=== PATIENT | male | born 1990 | race Caucasian/White ===

== ENCOUNTER 2020-11-04 08:44 | Outpatient (REF) | payer OTHER, SELFPAY ==
[2020-11-04 10:33] LABS: Hematocrit 41.8 % (42-52); Hemoglobin 13.9 g/dl (14.0-18.0); Mean Corpuscular HGB Conc 33.3 g/dl (31.0-36.0); Mean Corpuscular Hemoglobin 29.6 pg (27.0-33.0); Mean Corpuscular Volume 88.9 fL (80-98); Mean Platelet Volume 11.5 fL (9.4-12.4); Platelet Count 234 X10*3/uL (160-400); Red Cell Distribution Width 12.3 % (11.0-16.0); White Blood Count 5.5 X10*3/uL (4.8-10.8)
[2020-11-04 10:57] LABS: Alanine Aminotransferase 21 U/L (0-40); Albumin Level 4.5 g/dL (3.5-5.0); Alkaline Phosphatase 78 U/L (39-117); Anion Gap 9 (12-20); Aspartate Amino Transferase 16 U/L (5-37); Bilirubin Direct 0.4 mg/dL (0.0-0.5); Bilirubin Total 1.5 mg/dL (0.0-1.0); Blood Urea Nitrogen 14 mg/dL (9-16); Carbon Dioxide 31 mmol/L (22-29); Chloride 105 mmol/L (96-108); Cholesterol 150 mg/dL; Estimated Glomerular Filt Rate > 60; Glucose Fasting 111 mg/dL (60-99); HDL Cholesterol 35 mg/dL; LDL Cholesterol Calculated 88 mg/dl; Potassium 4.2 mmol/L (3.3-5.1); Sodium 141 mmol/L (135-145); Total Protein 7.1 g/dL (6.5-8.0); Triglycerides 135 mg/dL
[2020-11-04 11:17] LABS: TSH reflex Free T4 1.56 uIU/mL (0.32-4.0)
== END 2020-11-04 08:45 | disposition home or self-care (01) ==
LOC: HO.WFDLDS 08:44
PROVIDERS: PCP Hospitalist; Visit Provider Hospitalist
DX: Z00.00 Encounter for general adult medical examination without abnormal findings (principal)
CPT/HCPCS: 36415; 80048; 80061; 80076; 84443; 85027

== ENCOUNTER 2020-12-09 10:22 | Outpatient (REF) | payer OTHER, SELFPAY ==
[2020-12-09 14:40] LABS: Anion Gap 17 (12-20); Blood Urea Nitrogen 19 mg/dL (9-16); Calcium 9.6 mg/dL (8.4-10.2); Carbon Dioxide 27 mmol/L (22-29); Chloride 103 mmol/L (96-108); Estimated Glomerular Filt Rate > 60; Glucose Random 102 mg/dL (60-115); Potassium 4.5 mmol/L (3.3-5.1); Sodium 142 mmol/L (135-145)
== END 2020-12-09 10:23 | disposition home or self-care (01) ==
LOC: HO.WFDLDS 10:22
PROVIDERS: Visit Provider Hospitalist
DX: R17 Unspecified jaundice (principal)
CPT/HCPCS: 36415; 80048

== ENCOUNTER 2021-07-01 10:41 | Outpatient (REF) | payer OTHER, SELFPAY ==
[2021-07-01 14:08] LABS: Hematocrit 42.3 % (42-52); Mean Corpuscular HGB Conc 33.1 g/dl (31.0-36.0); Mean Corpuscular Hemoglobin 29.2 pg (27.0-33.0); Mean Corpuscular Volume 88.3 fL (80-98); Mean Platelet Volume 11.3 fL (9.4-12.4); Platelet Count 209 X10*3/uL (160-400); Red Blood Count 4.79 X10*6/uL (4.60-5.80); Red Cell Distribution Width 11.9 % (11.0-16.0)
[2021-07-01 14:34] LABS: Alanine Aminotransferase 14 U/L (0-40); Albumin Level 4.7 g/dL (3.5-5.0); Alkaline Phosphatase 77 U/L (39-117); Anion Gap 9 (12-20); Aspartate Amino Transferase 14 U/L (5-37); Bilirubin Total 1.6 mg/dL (0.0-1.0); Blood Urea Nitrogen 9 mg/dL (9-16); Calcium 9.4 mg/dL (8.4-10.2); Carbon Dioxide 31 mmol/L (22-29); Chloride 105 mmol/L (96-108); Cholesterol 166 mg/dL; Estimated Glomerular Filt Rate > 60; Glucose Fasting 101 mg/dL (60-99); HDL Cholesterol 42 mg/dL; LDL Cholesterol Calculated 105 mg/dl; Sodium 141 mmol/L (135-145); Total Protein 7.4 g/dL (6.5-8.0); Triglycerides 97 mg/dL
[2021-07-01 14:54] LABS: TSH reflex Free T4 1.44 uIU/mL (0.32-4.0)
== END 2021-07-01 10:42 | disposition home or self-care (01) ==
LOC: HO.WFDLDS 10:41
PROVIDERS: Visit Provider Hospitalist
DX: Z00.00 Encounter for general adult medical examination without abnormal findings (principal)
CPT/HCPCS: 36415; 80053; 80061; 84443; 85027

== ENCOUNTER 2021-09-19 10:53 | Outpatient (REF) | payer OTHER, SELFPAY ==
[2021-09-19 11:47] LABS: Binax Internal Control QC Valid; Binax Lot number: 9864; Binax Now Covid-19 Ag Positive (Negative)
== END 2021-09-19 10:54 | disposition home or self-care (01) ==
LOC: HO.LAB 10:53
PROVIDERS: Visit Provider Internal Medicine
DX: Z20.822 Contact with and (suspected) exposure to COVID-19 (principal)
CPT/HCPCS: 36415; C9803

== ENCOUNTER 2021-09-19 11:07 | Outpatient (REF) | payer SELFPAY ==
[2021-09-19 11:48] LABS: Binax Internal Control QC Valid; Binax Lot number: 9864; Binax Now Covid-19 Ag Positive (Negative)
== END 2021-09-19 11:08 | disposition home or self-care (01) ==
LOC: HO.LAB 11:07
PROVIDERS: Visit Provider Internal Medicine
DX: Z20.822 Contact with and (suspected) exposure to COVID-19 (principal)
CPT/HCPCS: 36415; C9803

== ENCOUNTER 2021-09-25 12:36 | Outpatient (REF) | payer OTHER, SELFPAY ==
[2021-09-25 15:51] LABS: Binax Internal Control QC Valid; Binax Now Covid-19 Ag Negative (Negative)
== END 2021-09-25 12:37 | disposition home or self-care (01) ==
LOC: HO.LAB 12:36
PROVIDERS: Visit Provider Internal Medicine
DX: Z20.822 Contact with and (suspected) exposure to COVID-19 (principal)
CPT/HCPCS: 36415; C9803

== ENCOUNTER 2021-09-25 12:37 | Outpatient (REF) | payer SELFPAY ==
[2021-09-25 15:49] LABS: Binax Internal Control QC Valid; Binax Now Covid-19 Ag Negative (Negative)
== END 2021-09-25 12:38 | disposition home or self-care (01) ==
LOC: HO.LAB 12:37
PROVIDERS: Visit Provider Internal Medicine
DX: Z20.822 Contact with and (suspected) exposure to COVID-19 (principal)
CPT/HCPCS: 36415; C9803

== ENCOUNTER 2021-10-11 07:44 | Emergency (ER) | payer BC, SELFPAY ==
--- NOTE | ~2021-10-11 | CT_ITS ---
EXAMINATION: CT ABDOMEN AND PELVIS WITHOUT CONTRAST CLINICAL INFORMATION: Right flank pain COMPARISON: None TECHNIQUE: Multidetector volumetric imaging was performed from the superior aspect of the liver through the pubic symphysis. Sagittal and coronal reformatted images were obtained on the technologist's workstation. This CT examination was performed using dose optimization techniques as appropriate, variously including the following: *Automated exposure control *Adjustment of mA and/or kV according to patient size (this includes techniques or standardized protocols for targeted exams where dose is matched to indication/reason for exam; i.e. extremities or head) *Use of iterative reconstruction technique DLP: 676 mGy-cm FINDINGS: LUNG BASES: The visualized lung bases are unremarkable. LIVER, GALLBLADDER, AND BILIARY TREE: Diffuse fatty infiltration of liver with sparing along the gallbladder fossa. The gallbladder is unremarkable with no evidence of radiopaque gallstones, gallbladder wall thickening, or obvious pericholecystic inflammatory changes. PANCREAS: Unremarkable. SPLEEN: Unremarkable. ADRENAL GLANDS: Unremarkable. KIDNEYS AND URETERS: The kidneys are normal in size, shape, and attenuation. No hydronephrosis, hydroureter, or calculi seen. No perinephric stranding. BLADDER: Unremarkable. GASTROINTESTINAL TRACT: The small and large bowel are unremarkable. The appendix is unremarkable. ABDOMINAL WALL: No significant hernia is appreciated. LYMPH NODES: Normal. VASCULAR: Unremarkable. PELVIC VISCERA: Unremarkable. OSSEOUS STRUCTURES: Unremarkable. CT/CT abdomen pelvis wo IV con IMPRESSION: No focal inflammatory process or obstruction. No renal or ureteral calculi. Normal appendix. Mild diffuse fatty infiltration of the liver. Fleischner guidelines were followed.
[2021-10-11 08:34] VITALS: BP 141/88; PULSE 74; RESP 18; O2SAT 99; BMI 32.1
[2021-10-11 08:47] LABS: Appearance Urine CLOUDY; Color Urine YELLOW; Glucose Urine UA NEG (NEG); Leukocyte Esterase Urine NEG (NEG); Nitrite Urine NEG (NEG); Specific Gravity - Urine >= 1.030 (1.005-1.025); UACC Culture Trigger NO; Urine Blood 3+ (NEG); Urine Ketones NEG (NEG); Urine Protein TRACE MG/DL (NEG-TRACE)
[2021-10-11 09:00] LABS: Mucus Urine 2+ /LPF; Squamous Epithelial Cell Urine TRACE /LPF; WBC Urine 0 /HPF (0-4)
--- NOTE | 2021-10-11 09:27 | ED_ITS ---
HPI - Back Pain/Injury General Chief Complaint: Back Pain/Injury Stated Complaint: Lower back pain Time Seen by Provider: 10/11/21 08:39 Source: patient Mode of arrival: ambulatory History of Present Illness HPI Narrative: 30-year-old male with a past medical history of hypertension presenting to the ED complaining of right flank pain radiating to right testicle x 2-3 days. Reports pain is intermittent, also admits to dark colored urine. Denies known injury/trauma or fall, Testicular pain/swelling, fever, chills, nausea, vomiting, dysuria/hematuria, abdominal pain MD elicited complaint: back pain Onset (ago): day(s) Related Data Previous Rx's Medication Instructions Recorded lisinopril 10 mg tablet 10 mg PO DAILY #90 tab 09/10/21 doxycycline hyclate 100 mg tablet 100 mg PO BID 7 Days #14 tab 10/11/21 Allergies Allergy/AdvReac Type Severity Reaction Status Date / Time No Known Allergies Allergy Unverified 06/06/20 15:54 [No Known Allergies*] Review of Systems Review of Systems: Constitutional: No Fever, No Chills, No Fatigue, No Malaise ENT/Mouth: No Hearing loss, No Ear Pain, No Nasal Congestion, No sore throat, No Rhinorrhea, No Swallowing Difficulty Eyes: No Eye Pain, No Swelling, No Redness, No Discharge, No Vision Changes Cardiovascular: No Chest Pain, No SOB, No Palpitations Respiratory: No Cough, No Sputum, No Dyspnea Gastrointestinal: No Nausea, No Vomiting, No Diarrhea, No Constipation, No Abdominal pain Genitourinary: No testicular pain, No scrotal swelling, No Dysuria, No Urinary Frequency, No Hematuria, No Urinary Incontinence, No Urgency, + Flank Pain, No Urinary Flow Changes Musculoskeletal: No joint pain, No Myalgias, No Joint Swelling Skin: No Skin Lesions, No rash Neuro: No Weakness, No Numbness, No Headache Yes all other systems are reviewed and are negative PMFSH Past Medical History Attestation statement: The following information was validated with the patient. Medical History Hypertension Social History Social History Alcohol intake: never Patient Tobacco Use Status: Never used Tobacco Use of substances other than those prescribed or required for medical reasons: No Advance Directives: No Advance Directives Information Provided: No Physical Exam Vital Signs: Vital Signs: Last Vital Signs Temp 97.9 F 10/11/21 09:48 Pulse 92 10/11/21 09:48 Resp 18 10/11/21 09:48 BP 142/92 H 10/11/21 09:48 Pulse Ox 100 10/11/21 09:48 BMI result Body Mass Index 32.1 Const: General: cooperative, healthy appearing, no acute distress and well developed Orientation/consciousness: patient oriented x3 Limitations: no limitations HENMT: Head: Yes normal to inspection and Yes atraumatic Ears: hearing grossly normal bilaterally General nose exam: Normal external nose present Face and sinus: Yes normal facial exam Eyes: General: appearance normal, both eyes and all related structures EOM: EOMs intact bilaterally Neck: Neck: Yes normal visual inspection and Yes no meningeal signs Resp: Effort & Inspection: normal respiratory effort and no respiratory distress Cardio: Rate: regular rate Heart sounds: S1 normal heart sound present and S2 normal heart sound present GI: Inspection: Yes normal to inspection Palpation (GI): Soft to palpation, nontender, no guarding and not rigid : General: Yes CVA tenderness on the right Penis: normal penis, uncircumcised and no swelling Scrotum: scrotum normal Testes: Testes normal, testicular lie normal, not enlarged, no testicular swelling and no testicular tenderness Back/Spine/Pelvis: Back: CVA tenderness Skin: Rashes: no rashes Wounds: no wounds Neuro: General: patient oriented x3 and no meningeal signs Gait exam (Neuro): Normal gait present Extrem: General: Yes normal to inspection Course Course Course Narrative: -0939--CT abdomen pelvis wo con IMPRESSION: No focal inflammatory process or obstruction. No renal or ureteral calculi. Normal appendix. Mild diffuse fatty infiltration of the liver.? Fleischner guidelines were followed. -UA with multiple RBCs, not infected, likely patient passed stone -patient denies testicular swelling, lesions, discharge, or concern for STI. Will obtain CT NG. exam WNL >> No need for further imaging at this time. Patient agreeable to empiric treatment of GC/chlamydia with IM Rocephin and Doxycycline -no leukocytosis, ALT elevated, labs otherwise unremarkable. Results discussed with patient including worrisome signs and symptoms and strict return precautions and need to close follow-up with PCP which he reports he has follow- up next week. He verbalized understanding & feel safe for discharge home at this time MDM - Back Pain/Injury MDM Narrative Medical decision making narrative: 30-year-old male with a past medical history of hypertension presenting to the ED complaining of right flank pain radiating to right testicle times 2-3 days. On exam vital signs stable, NAD/nontoxic, right CVA tenderness noted on exam. Abdomen soft/nontender. Concern for renal stone/colic vs UTI/pyelo. Lower concern for appendicitis/diverticulitis, pancreatitis or cholecystitis/lithiasis. Low concern for testicular torsion/e pididymitis/orchitis Plan: Labs, UA, CT AP, IVF, symptomatic treatment, re-evaluate Differential Diagnosis Differential diagnosis: Likely pyelonephritis Medical Records Attestation: I reviewed the patient's medical records. Lab Data Attestation: I reviewed the patient's lab results. Result diagrams: 10/11/21 09:47 10/11/21 09:47 Labs: Lab Results 10/11/21 10/11/21 10/11/21 Range/Units 08:40 09:47 09:47 WBC 6.4 (4.8-10.8) X10*3/uL RBC 4.78 (4.60-5.80) X10*6/uL Hgb 14.2 (14.0-18.0) g/dl Hct 42.5 (42.0-52.0) % MCV 88.9 (80.0-98.0) fL MCH 29.7 (27.0-33.0) pg MCHC 33.4 (31.0-36.0) g/dl RDW 12.2 (11.0-16.0) % Plt Count 179 (160-400) X10*3/uL MPV 11.2 (9.4-12.4) fL Immature Gran % (Auto) 0.2 (0.0-0.4) % Neut % (Auto) 36.4 L (45-73) % Lymph % (Auto) 50.5 H (20-40) % [place] % (Auto) 5.9 (2-11) % Eos % (Auto) 6.2 H (0-4) % Baso % (Auto) 0.8 (0-2) % Lymph # (Auto) 3.3 (1.2-4.9) X10*3/uL [place] # (Auto) 0.4 (0.1-1.2) X10*3/uL Eos # (Auto) 0.4 (0.0-0.4) X10*3/uL Baso # (Auto) 0.1 (0.0-0.2) X10*3/uL Abs Immat Gran (auto) 0.01 (0.00-0.03) X10*3/uL Absolute Neuts (auto) 2.3 (2.0-8.3) x10*3/uL Absolute Nucleated RBC 0.000 (0.0-0.012) X10*3/uL Nucleated RBC % (auto) 0.0 (0.0-0.2) /100WBC Sodium 143 (135-145) mmol/L Potassium 3.7 (3.3-5.1) mmol/L Chloride 106 (96-108) mmol/L Carbon Dioxide 26 (22-29) mmol/L Anion Gap 15 (12-20) BUN 8 L (9-16) mg/dL Creatinine 0.79 (0.5-1.4) mg/dL Estim Creat Clear Calc 165.0 Estimated GFR > 60 Random Glucose 114 (60-115) mg/dL Calcium 9.4 (8.4-10.2) mg/dL Total Bilirubin 1.1 H (0.0-1.0) mg/dL Direct Bilirubin 0.4 (0.0-0.5) mg/dL AST 30 (5-37) U/L ALT 58 H (0-40) U/L Alkaline Phosphatase 92 (39-117) U/L Total Protein 7.3 (6.5-8.0) g/dL Albumin 4.4 (3.5-5.0) g/dL Lipase 18 (8-78) U/L Urine Color YELLOW Urine Appearance CLOUDY Urine pH 6.0 (5.0-8.0) Ur Specific [place] >= 1.030 H (1.005-1.025) Urine Protein TRACE (NEG-TRACE) MG/DL Urine Glucose (UA) NEG (NEG) MG/DL Urine Ketones NEG (NEG) MG/DL Urine Blood 3+ H (NEG) Urine Nitrite NEG (NEG) Ur Leukocyte Esterase NEG (NEG) Urine RBC 76-150 H (0) /HPF Urine WBC 0 (0-4) /HPF Ur Squamous Epith Cells TRACE /LPF Urine Bacteria NONE /LPF Urine Mucus 2+ /LPF Discharge Plan Discharge Clinical Impression: Acute flank pain, Hematuria, microscopic Patient Disposition: Home, Self-Care Instructions: Flank Pain (ED) Additional Instructions: A CT scan was unremarkable. Your urine had a lot of blood in it, it is suspected that your passed a stone Your blood work was otherwise reassuring Your tested for gonorrhea and Chlamydia, the results are pending at this time, you were treated empirically in the emergency department. You will be called with positive result only in 48-72 hours. Refrain from any sexual contact until you know the results of her cultures. If symptoms persist or worsen, pain becomes constant/unbearable, you have persistent nausea/vomiting or fever please return to the emergency department Prescriptions: New doxycycline hyclate 100 mg tablet 100 mg PO BID 7 Days Qty: 14 RF: 0 No Action lisinopril 10 mg tablet 10 mg PO DAILY Qty: 90 RF: 1 Referrals: Beverly Ambriz NP [Primary Care Provider] - 3 days
[2021-10-11 09:48] VITALS: BP 142/92; PULSE 92; RESP 18; TEMP 36.6; O2SAT 100
[2021-10-11] MEDS: Ketorolac Tromethamine 30 MG/ML VIAL 15 MG IVPUSH (09:53)
[2021-10-11 09:54] LABS: MANUAL DIFF FLAG NO
[2021-10-11] MEDS: 0.9 % Sodium Chloride 1,000 ML 999 ML IV (09:54)
[2021-10-11 10:13] LABS: Basophils Absolute Auto 0.1 X10*3/uL (0.0-0.2); Basophils Percent Auto 0.8 % (0-2); Eosinophils Absolute Auto 0.4 X10*3/uL (0.0-0.4); Eosinophils Percent Auto 6.2 % (0-4); Hematocrit 42.5 % (42.0-52.0); Hemoglobin 14.2 g/dl (14.0-18.0); Imm Gran Abs Auto 0.01 X10*3/uL (0.00-0.03); Imm Gran Pct Auto 0.2 % (0.0-0.4); Lymphocytes Absolute Auto 3.3 X10*3/uL (1.2-4.9); Lymphocytes Percent Auto 50.5 % (20-40); Mean Corpuscular HGB Conc 33.4 g/dl (31.0-36.0); Mean Corpuscular Hemoglobin 29.7 pg (27.0-33.0); Mean Corpuscular Volume 88.9 fL (80.0-98.0); Mean Platelet Volume 11.2 fL (9.4-12.4); Monocytes Absolute Auto 0.4 X10*3/uL (0.1-1.2); Monocytes Percent Auto 5.9 % (2-11); Neutrophils Absolute Auto 2.3 x10*3/uL (2.0-8.3); Neutrophils Percent Auto 36.4 % (45-73); Platelet Count 179 X10*3/uL (160-400); Red Blood Count 4.78 X10*6/uL (4.60-5.80); Red Cell Distribution Width 12.2 % (11.0-16.0); White Blood Count 6.4 X10*3/uL (4.8-10.8)
[2021-10-11 10:23] LABS: Alanine Aminotransferase 58 U/L (0-40); Albumin Level 4.4 g/dL (3.5-5.0); Alkaline Phosphatase 92 U/L (39-117); Anion Gap 15 (12-20); Aspartate Amino Transferase 30 U/L (5-37); Bilirubin Direct 0.4 mg/dL (0.0-0.5); Bilirubin Total 1.1 mg/dL (0.0-1.0); Blood Urea Nitrogen 8 mg/dL (9-16); Calcium 9.4 mg/dL (8.4-10.2); Carbon Dioxide 26 mmol/L (22-29); Chloride 106 mmol/L (96-108); Estimated Glomerular Filt Rate > 60; Glucose Random 114 mg/dL (60-115); Lipase 18 U/L (8-78); Potassium 3.7 mmol/L (3.3-5.1); Sodium 143 mmol/L (135-145); Total Protein 7.3 g/dL (6.5-8.0)
[2021-10-11 12:17] LABS: CT PCR NOT DETECTED (Not Detect.); NG PCR NOT DETECTED (Not Detect.)
[2021-10-11 12:32] VITALS: BP 119/69; PULSE 73; RESP 18; O2SAT 98
== END 2021-10-11 12:50 | disposition home or self-care (01) ==
PROVIDERS: Physician Assistant; Emergency Provider Internal Medicine; PCP Hospitalist
DX: R10.9 Unspecified abdominal pain (principal); R31.29 Other microscopic hematuria; I10 Essential (primary) hypertension; Z79.899 Other long term (current) drug therapy
CPT/HCPCS: 36415; 74176; 80048; 80076; 81001; 83690; 85025; 87491; 87591; 96361; 96372; 96374; 99284; J1885

== ENCOUNTER 2021-10-14 08:10 | Outpatient (REF) | payer BC, SELFPAY ==
[2021-10-14 10:04] LABS: Cholesterol 166 mg/dL; HDL Cholesterol 31 mg/dL; LDL Cholesterol Calculated 111 mg/dl; Triglycerides 122 mg/dL
[2021-10-14 10:25] LABS: TSH reflex Free T4 0.72 uIU/mL (0.32-4.0)
== END 2021-10-14 08:11 | disposition home or self-care (01) ==
LOC: HO.LAB 08:10
PROVIDERS: PCP Hospitalist; Visit Provider Hospitalist
DX: Z00.00 Encounter for general adult medical examination without abnormal findings (principal)
CPT/HCPCS: 36415; 80061; 84443

== ENCOUNTER 2021-12-09 13:06 | Emergency (ER) | payer OTHER, SELFPAY ==
[2021-12-09 13:31] VITALS: BP 138/69; PULSE 62; RESP 19; TEMP 36.6; O2SAT 98; BMI 27.8
[2021-12-09 14:15] LABS: COVID-19 Test Negative (Negative); IDNOW Serial# 08D9AD1C
[2021-12-09 14:16] LABS: Influenza A Negative (Negative); Influenza B2 Negative (Negative)
--- NOTE | 2021-12-09 14:45 | ED.GENADULT ---
HPI - General Adult General Chief complaint: General Medical Stated complaint: Headache/fever Time Seen by Provider: 12/09/21 14:45 Source: patient Mode of arrival: ambulatory History of Present Illness HPI narrative: 50-year-old male with no significant past medical history presenting to the ED complaining of subjective fever, sinus pressure, mild headache, sore throat, and congestion x 3-5 days. Denies ear pain, difficulty/inability to swallow, cough, SOB, CP, sick contacts Onset (ago): day(s) Related Data Home Medications Medication Instructions Recorded Confirmed multivitamin with iron-mineral 1 tab PO DAILY 12/09/20 Previous Rx's Medication Instructions Recorded flu vac qv 2020(18yr up)rc(PF) 0.5 ml IM ONCE 1 Days #0.5 ml 07/01/21 fluticasone propionate 50 2 spray INTRANASAL DAILY #16 g 12/09/21 mcg/actuation nasal spray,suspension (Flonase Allergy Relief) Allergies Allergy/AdvReac Type Severity Reaction Status Date / Time banana Allergy Mild swell up Verified 07/01/21 10:01 Review of Systems Review of Systems: Constitutional: +Subj Fever, No Chills ENT/Mouth: No Ear Pain, + Nasal Congestion, + Sinus Pain, No Hoarseness, + sore throat, + Rhinorrhea, No Swallowing Difficulty Cardiovascular: No Chest Pain, No SOB Respiratory: No Cough, No Sputum, No Wheezing Gastrointestinal: No Nausea, No Vomiting, No Diarrhea, No Constipation, No Abdominal pain Genitourinary: No Dysuria, No Urinary Frequency, No Hematuria, No Urgency, No Flank Pain Musculoskeletal: No joint pain, No Myalgias, No Joint Swelling Skin: No Skin Lesions, No rash Neuro: No Weakness, No Numbness, No Paresthesias, +Headache Yes all other systems are reviewed and are negative [facility] Past Medical History Attestation statement: The following information was validated with the patient. Family History Family History Mother High blood pressure Glaucoma Heart disease Cancer Lactose intolerance Father High blood pressure Heart disease Cancer Sleep apnea Brother High blood pressure Social History Social History Housing: House Patient Tobacco Use Status: Former Tobacco user e-Cigarette/Vaping Use: Never Used Advance Directives: No Advance Directives Information Provided: No service: No Current occupational status: employed Current occupation: student financial services counselor Physical Exam ED Vital Signs: Vital Signs - 24 hr 12/09/21 13:31 Temperature 98 F Pulse Rate 62 Respiratory Rate 19 Blood Pressure 138/69 Pulse Oximetry 98 BMI result Body Mass Index 27.8 Const General: cooperative, healthy appearing, no acute distress, alert and awake Orientation/consciousness: patient oriented x3 Limitations: no limitations HENMT Head: Yes normal to inspection Ears: hearing grossly normal bilaterally, external ears normal, TM's normal bilaterally and mastoids normal General nose exam: Normal external nose present and Nasal discharge present clear Face and sinus: Yes normal facial exam and Yes sinuses nontender Mouth: Normal oral and palatal mucosa present Throat: Yes posterior oropharynx normal, Yes tonsils normal, Yes uvula midline, No peritonsillar mass, No uvula laterally displaced and No uvular edema Eyes General: appearance normal, both eyes and all related structures EOM: EOMs intact bilaterally Neck Neck: Yes normal visual inspection, Yes no lymphadenopathy, Yes no meningeal signs and Yes supple Resp Effort & Inspection: normal respiratory effort and no respiratory distress Auscultation: clear to auscultation bilaterally, no rales, no rhonchi and no wheezes Cardio Rate: regular rate Heart sounds: S1 normal heart sound present and S2 normal heart sound present GI Inspection: Yes normal to inspection Palpation (GI): Soft to palpation, nontender, no guarding and not rigid Skin Rashes: no rashes Wounds: no wounds Neuro General: patient oriented x3 and no meningeal signs Gait exam (Neuro): Normal gait present Extrem General: Yes normal to inspection Course Course Course Narrative: -COVID-19 negative, influenza negative Medical Decision Making [facility] Narrative Medical decision making narrative: 50-year-old male with no significant past medical history presenting to the ED complaining of subjective fever, sinus pressure, mild headache, sore throat, and congestion x 3-5 days. On exam vital signs stable, NAD/nontoxic appearing, lungs CTA, TM's/oropharynx WNL. Concern for viral syndrome. Exam not consistent with strep pharyngitis or otitis Plan: COVID-19 testing, influenza testing Medical Records Medical records reviewed: Yes I reviewed the patient's medical records. Lab Data Labs: Lab Results 12/09/21 12/09/21 Range/Units 13:42 13:42 COVID-19 (REGINO) Negative (Negative) COVID-19 Clin Com See Note Influenza Type A (LILI) Negative (Negative) Influenza Type B (LILI) Negative (Negative) Influenza A & B Note See Note Discharge Plan Discharge Clinical Impression: Acute viral syndrome Patient Disposition: Home, Self-Care Instructions: Viral Syndrome (ED) Additional Instructions: You tested negative for COVID-19 in the flu Stay hydrated at home Rest Take Tylenol and Motrin as needed Flonase as a nasal decongestion Please follow-up with her doctor. If symptoms persist or worsen, he develops shortness of breath, fever unresolved with medications or chest pain please return to the ED Prescriptions: New fluticasone propionate [Flonase Allergy Relief] 50 mcg/actuation spray,suspension 2 spray intranasal DAILY Qty: 16 0RF Rx Instructions: administer into each nostril No Action multivitamin with iron-mineral Tablet 1 tab PO DAILY 0RF flu vac qv 2020(18yr up)rc(PF) 180 mcg (45 mcg x 4)/0.5 mL syringe 0.5 ml IM ONCE 1 Days Qty: 0.5 0RF Referrals: Beverly Ambriz, [employer] [Primary Care Provider] - 2 days
== END 2021-12-09 15:01 | disposition home or self-care (01) ==
PROVIDERS: Emergency Provider Emergency Medicine Emergency Medical Services; PCP Hospitalist
DX: B34.9 Viral infection, unspecified (principal); Z20.822 Contact with and (suspected) exposure to COVID-19; R51.9 Headache, unspecified
CPT/HCPCS: 87502; 87635; 99283

== ENCOUNTER 2022-02-21 20:00 | Emergency (ER) | payer OTHER, SELFPAY ==
--- NOTE | ~2022-02-21 | CT_ITS ---
EXAMINATION: CT SOFT TISSUE NECK WITHOUT CONTRAST CLINICAL INFORMATION: Left mandibular swelling. Rule out abscess. COMPARISON: None TECHNIQUE: Helical imaging was performed in the axial plane with generation of coronal and sagittal reformatted images. This CT examination was performed using dose optimization techniques as appropriate, variously including the following: *Automated exposure control *Adjustment of mA and/or kV according to patient size (this includes techniques or standardized protocols for targeted exams where dose is matched to indication/reason for exam; i.e. extremities or head) *Use of iterative reconstruction technique DLP: 975 mGy-cm FINDINGS: Extensive periapical lucency surrounding the roots of the right mandibular second premolar and first molar teeth with dehiscence of the buccal surface of the alveolar ridge and overlying soft tissue thickening. No gross low-density soft tissue/subperiosteal abscess. Extensive carious disease of the second premolar. On the left side, there are smaller periapical lucency about the roots of the left second premolar and first molar teeth compatible with periapical disease with minimal focal dehiscence of the buccal surface of the alveolus the more extensive soft tissue thickening and inflammatory fat stranding about the mandible minimal subcutaneous fat stranding. Again, no appreciable loculated fluid collection. No tracking soft tissue gas. No appreciable soft tissue swelling/inflammatory change at the floor the mouth. Major salivary glands unremarkable. Nodular heterogeneous appearance of the thyroid gland. No cervical lymphadenopathy. No mucosal space mass. Mild thickening of the posterior nasopharyngeal soft tissues likely lymphoid hyperplasia. Visualized intracranial structures are grossly unremarkable-limited assessment. Globes and retro-orbital structures are intact. 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 Parapharyngeal fat is maintained bilaterally. Visualized lung apices are clear. Diffuse retention cyst in the left maxillary antrum. Paranasal sinuses and mastoid air cells are otherwise normally aerated. Mild/early degenerative change suspected at the right TMJ with minimal sclerosis and subchondral cystic change about the mandibular condyle. No fracture or suspicious osseous lesion. Mild reversal of normal cervical lordosis noted. No listhesis. CT/CT soft tissue neck wo con IMPRESSION: 1. Periapical lucencies compatible with dental abscess/periapical disease involving the mandible surrounding the roots of the right and left second premolars and first molar teeth with dehiscence of the buccal surface of the mandible on both sides right greater than left and overlying soft tissue thickening and/or inflammatory change, left worse than right. No appreciable loculated fluid collection/soft tissue abscess appreciated. 2. Heterogeneously slightly nodular appearance of the thyroid gland. Correlate with thyroid function tests and suggest nonemergent thyroid ultrasound.
[2022-02-21 20:14] VITALS: BP 150/85; PULSE 60; RESP 20; TEMP 36.1; O2SAT 99; BMI 27.8
--- NOTE | 2022-02-21 21:07 | ED_ITS ---
HPI - Dental/Oral General Chief complaint: Dental/Oral Stated complaint: swollen/inflamed cheek, possible dental infection Time Seen by Provider: 02/21/22 20:59 Source: patient Mode of arrival: ambulatory Limitations: no limitations History of Present Illness HPI Narrative: 31-year-old male presents to the emergency department complaints of swelling to the left gum/cheek, tooth pain x2 days Patient tells me that he knows that he has a broken tooth there, he tells me that this has happened before when he has got a tooth infection. He reports swelling however he tells me there is very little pain. He has poor dentition he tells me. He has not seen a dentist in a while. He tells me is planning on seeing 1. He denies fevers or chills, numbness, tingling, chest pain, shortness of breath, difficulty swelling, difficulties controlling secretions, changes in voice, gum swelling, tongue swelling. MD Complaint: tooth pain Location: Tooth # (19) Teeth map: 1. Broke tooth Onset (ago): day(s) (2) Duration: constant Severity: mild Relieving factors: nothing Exacerbating factors: nothing Context: history of dental caries and poor dental care Treatment prior to arrival: none Related Data Home Medications Medication Instructions Recorded Confirmed multivitamin with iron-mineral 1 tab PO DAILY 12/09/20 Previous Rx's Medication Instructions Recorded flu vac qv 2020(18yr up)rc(PF) 0.5 ml IM ONCE 1 Days #0.5 ml 07/01/21 fluticasone propionate 50 2 spray INTRANASAL DAILY #16 g 12/09/21 mcg/actuation nasal spray,suspension (Flonase Allergy Relief) amoxicillin 500 mg tablet 500 mg PO BID 10 Days #20 tab 02/22/22 prednisone 20 mg tablet 20 mg PO DAILY 5 Days #5 tab 02/22/22 Allergies Allergy/AdvReac Type Severity Reaction Status Date / Time banana Allergy Mild swell up Verified 02/21/22 20:19 Review of Systems Review of Systems: Constitutional : No Weight loss, No Fever, No Chills, No Fatigue, No Malaise ENT/Mouth : No sore throat, No Rhinorrhea, + tooth pain, + cheek swelling Eyes: No Eye Pain, No Swelling, No Redness Cardiovascular : No Chest Pain, No SOB, No Dyspnea on Exertion, No Orthopnea, No Edema, No Palpitations Respiratory : No Cough, No Sputum, No Wheezing Gastrointestinal : No Nausea, No Vomiting, No Diarrhea, No Constipation, No abdominal Pain, No Hematochezia, No Melena Genitourinary : No Dysuria, No Urinary Frequency, No Hematuria, Musculoskeletal : No joint pain, No Myalgias, No Joint Swelling Skin : No Skin Lesions, No rash Neuro : No Weakness, No Numbness, No Dizziness, No Headache Psych : No Anxiety/Panic, No Depression All other systems reviewed and are negative Yes all other systems are reviewed and are negative [facility] Past Medical History Attestation statement: The following information was validated with the patient. Source: old records reviewed and nursing notes reviewed Family History Family History Mother High blood pressure Glaucoma Heart disease Cancer Lactose intolerance Father High blood pressure Heart disease Cancer Sleep apnea Brother High blood pressure Social History Social History Housing: House Patient Tobacco Use Status: Former Tobacco user e-Cigarette/Vaping Use: Never Used Advance Directives: No Advance Directives Information Provided: No service: No Current occupational status: employed Current occupation: environmental services specialist Physical Exam Vital Signs: Vital Signs: Last Vital Signs Temp 97 F 02/21/22 20:14 Pulse 60 02/21/22 20:14 Resp 20 02/21/22 20:14 BP 150/85 H 02/21/22 20:14 Pulse Ox 99 02/21/22 20:14 BMI result Body Mass Index 27.8 Vital signs stable Appearance: Alert.? Oriented X3.? No acute distress.? Fluid speech, no muffled voice, controlling secretions well. Head: Normocephalic, atraumatic, no step-offs or deformities Eyes: Pupils equal, round and reactive to light.? ENT: Pharynx normal.?+ poor dention + tooth #19 broken , swelling to the left mandible area/cheek, unable to palpate a definitive abscess, no erythema or ecchymosis. Uvula midline. Neck: Normal inspection.? Neck supple.? CVS: Normal heart rate and rhythm.? Pulses normal.? Respiratory: No respiratory distress.? Breath sounds normal.? Abdomen: Soft and nontender.? Skin: Skin warm and dry.? Normal skin color.? Normal skin turgor.? Extremities: No lower extremity edema.? No calf ttp. 5/5 strength to bilateral upper and lower extremities Back: No midline tenderness, no C-spine tenderness, full range of motion, no CVA tenderness bilaterally Neuro: Oriented X 3.? No motor deficit.? No sensory deficit. CN 2-12 intact Course Course Course Narrative: This patient was evaluated during a time of global shortage of iodinated contrast media. Based on guidance from the [employer], best practices, and local institutional approaches an alternative path for evaluating and managing the patient may have been employed in order to provide optimal care during this shortage. The current situation has been discussed with the patient. Reevaluation(s) Reevaluation #1: CT of soft tissue/neck consistent with dental abscesses. Discussed this case with Dr. Perez who tells me patient should be started on amoxicillin tomorrow, and he should follow up with his dentist. At this time patient will be discharged home with prompt PCP and dental follow-up. Advised to return with new or worsening symptoms, outlined these on his discharge. Comfortable discharge home Time: 00:02 Reevaluation #2: At time of discharge patient appears well, no acute distress, stable vital signs, controlling secretions, speaking in full sentences, eating and drinking without issues. Comfortable discharge home MDM - Dental/Oral MDM Narrative Medical decision making narrative: [id number] 31-year-old male presents with tooth pain, left-sided mandibular pain and swelling x2 days. Physical examination significant for patient with poor dentition, halitosis, broken tooth 19., swelling to the left mastoid region, unable to palpate abscess, no overlying skin changes. Regular rate and rhythm. Lungs clear. Abdomen soft nontender nondistended. Vital signs are stable. Patient controlling secretions well, speaking in full sentences, voice is normal. Plan at this time is to give patient Toradol, Augmentin, CT of neck and soft tissues. History and physical examination not consistent with epiglottitis, peritonsillar abscess. Will rule out abscess to the cheek, dental abscess. Unlikely that this is mastoiditis. Medical Records Attestation: I reviewed the patient's medical records. Lab Data Attestation: I reviewed the patient's lab results. Critical Care Time Critical Care Time Critical Care Time: No Discharge Plan Discharge Clinical Impression: Toothache, Abscess, dental Patient Disposition: Home, Self-Care Additional Instructions: Take your medications as prescribed. If you were prescribed antibiotics today, it is important that you take your medication to their entirety, do not skip any doses, do not finish them early. Follow-up with your primary care provider this week. Follow-up with your dentist as soon as possible within a day or two. Return to the emergency department with new or worsening symptoms. Such as fevers, chills, chest pain, shortness of breath, nausea, vomiting, dizziness, headache, vision changes, lethargy, changes in voice, difficulty swallowing. In case of emergency call [address] CT Soft Tisssue Neck 1. Periapical lucencies compatible with dental abscess/periapical disease involving the mandible surrounding the roots of the right and left second premolars and first molar teeth with dehiscence of the buccal surface of the mandible on both sides right greater than left and overlying soft tissue thickening and/or inflammatory change, left worse than right. No appreciable loculated fluid collection/soft tissue abscess appreciated. 2. Heterogeneously slightly nodular appearance of the thyroid gland. Correlate with thyroid function tests and suggest nonemergent thyroid ultrasound. Please be advised that you were seen during a time of global shortage of iodinated contrast media. This means an alternative approach to your diagnosis and treatment may have been employed in order to provide optimal care during the shortage. If you have any worsening symptoms, please go to the nearest emergency department or call 911 immediately Prescriptions: New prednisone 20 mg tablet 20 mg PO DAILY 5 Days Qty: 5 0RF amoxicillin 500 mg tablet 500 mg PO BID 10 Days Qty: 20 0RF No Action fluticasone propionate [Flonase Allergy Relief] 50 mcg/actuation spray,suspension 2 spray intranasal DAILY Qty: 16 0RF Rx Instructions: administer into each nostril multivitamin with iron-mineral Tablet 1 tab PO DAILY 0RF flu vac qv 2020(18yr up)rc(PF) 180 mcg (45 mcg x 4)/0.5 mL syringe 0.5 ml IM ONCE 1 Days Qty: 0.5 0RF Referrals: Beverly Ambriz, FAMILY NURSE PRACTITIONER [Primary Care Provider] - 2 days Stand Alone Forms: Work/School Release
[2022-02-21] MEDS: Amoxicillin/Potassium Clav 875 MG TABLET PO (21:39)
[2022-02-21] MEDS: Ketorolac Tromethamine 15 MG/ML VIAL 30 MG IM (23:10)
== END 2022-02-22 01:26 | disposition home or self-care (01) ==
PROVIDERS: Emergency Provider Emergency Medicine Emergency Medical Services; PCP Hospitalist
DX: K04.7 Periapical abscess without sinus (principal); K08.89 Other specified disorders of teeth and supporting structures; R22.0 Localized swelling, mass and lump, head; Z87.891 Personal history of nicotine dependence
CPT/HCPCS: 70490; 96372; 99282; 99284; J1885

== ENCOUNTER 2023-09-03 12:11 | Emergency (ER) | payer BC, SELFPAY ==
--- NOTE | ~2023-09-03 | XR_ITS ---
EXAMINATION: XR CHEST CLINICAL INFORMATION: Syncope COMPARISON: None available. TECHNIQUE: 2 views of the chest were obtained. FINDINGS: No significant abnormality is noted involving the heart, lungs, mediastinum, bony thorax or soft tissues. XR/XR chest 2V IMPRESSION: Unremarkable chest examination.
[2023-09-03 12:20] VITALS: BP 153/83; PULSE 68; RESP 20; TEMP 37.4; O2SAT 100; BMI 27.9
--- NOTE | 2023-09-03 12:20 | ED.GENADULT ---
HPI - General Adult General Chief complaint: Syncope Stated complaint: Passed Out 1 Hr Ago Time Seen by Provider: 09/03/23 13:01 Source: patient Mode of arrival: ambulatory Limitations: no limitations History of Present Illness HPI narrative: 32 yo male with PMH of kidney stones here with c/o drinking water too fast and too much while sitting in his car - door was open and he coughed very hard then felt weird and dizzy brief LOC no CP/SOB no hx of ACS or VTE. He did not bite his tongue or have incontinence. He notes it was under a minute. He feels fine now. He states this has not happened before. Other than more stress in life he has been okay. complaint: syncope Onset (ago): minute(s) (prior to arrival ) Location: chest Radiation: non-radiation Relieving factors: rest Exacerbating factors: other (occurred after coughing) Associated symptoms: denies other symptoms Treatments prior to arrival: none Related Data Previous Rx's Medication Instructions Recorded lisinopril 10 mg tablet 10 mg PO DAILY #90 tabs 09/10/21 Allergies Allergy/AdvReac Type Severity Reaction Status Date / Time No Known Allergies Allergy Unverified 10/27/21 13:46 [No Known Allergies*] Review of Systems Review of Systems: Constitutional : No Fever, No Chills, No Fatigue ENT/Mouth : No sore throat, No Rhinorrhea Eyes: No Eye Pain, No Swelling, No Redness Cardiovascular : No Chest Pain, No SOB, No Dyspnea on Exertion Respiratory : No Cough, No Sputum Gastrointestinal : No Nausea, No Vomiting, No Diarrhea, No abdominal Pain Genitourinary : No Dysuria, No Urinary Frequency, No Hematuria, Musculoskeletal : No joint pain, No Myalgias, No Joint Swelling Skin : No Skin Lesions, No rash Neuro : No Weakness, No Numbness, No Dizziness, no Headache, pos syncope Psych : No Anxiety/Panic, No Depression All other systems reviewed and are negative [facility] Past Medical History Attestation statement: The following information was validated with the patient. Source: old records reviewed Medical History Hypertension Family History Family History Other Substance use disorder Social History Social History (Reviewed 09/03/23 @ 13:04 by JALIL Vázquez Housing: House Alcohol intake: never Patient Tobacco Use Status: Never used Tobacco Smoked in Last 30 Days: No Use of substances other than those prescribed or required for medical reasons: Yes Substance Use Type: Marijuana Advance Directives: Yes Advance Directives Information Provided: No Advance Directives on File: No Current occupational status: employed Physical Exam ED Vital Signs: Vital Signs - 24 hr 09/03/23 12:20 09/03/23 13:09 09/03/23 13:09 Temperature 99.4 F 98.5 F Pulse Rate 68 79 Respiratory Rate 20 16 Blood Pressure 153/83 H 126/71 Pulse Oximetry 100 95 97 Oxygen Delivery Method Room Air Room Air Room Air BMI result Body Mass Index 27.9 Appearance: Alert. Oriented X3. No acute distress. Eyes: Pupils equal, round and reactive to light. ENT: Pharynx normal. Neck: Normal inspection. Neck supple. CVS: Normal heart rate and rhythm. Pulses normal. Respiratory: No respiratory distress. Breath sounds normal. Abdomen: Soft and nontender. Skin: Skin warm and dry. Normal skin color. Normal skin turgor. Extremities: No lower extremity edema. No calf ttp Neuro: Oriented X 3. No motor deficit. No sensory deficit. Course Course Course Narrative: RME performed by Tata Munoz PA-C. Patient is a 32 year old assigned male at presenting to the emergency department after a syncopal episode. Patient states that he drank some water, choked on it, then passed out for <1 minute. Labs, imaging, and swabs ordered. Patient placed back in the waiting room pending room availability and results. Medical Decision Making Medical Decision Making [facility] Narrative: 32 yo male with PMH of kidney stones here with c/o having an episode while sitting when he coughed and beared down then had brief syncopal episode - no CP/SOB no incontinence, no postictal state. He is at his baseline has no risk factor for ACS or VTE. Suspect vasovagal syncope will obtain basic labs and EKG. Send home with precautions Differential Diagnosis Differential Diagnoses: The differential diagnosis associated with the presentation includes dehydration, vasovagal syncope Admission/Observation Consideration of admission/observation: Escalation of care including admission/observation considered at baseline stable for DC Lab Data [facility] Lab Attestation statement: I reviewed the patient's lab results. 09/03/23 12:31 09/03/23 12:31 Labs: Lab Results 09/03/23 09/03/23 09/03/23 Range/Units 12:30 12:31 13:47 WBC 6.0 (4.8-10.8) X10*3/uL RBC 5.20 (4.60-5.80) X10*6/uL Hgb 15.0 (14.0-18.0) g/dl Hct 45.5 (42.0-52.0) % MCV 87.5 (80.0-98.0) fL MCH 28.8 (27.0-33.0) pg MCHC 33.0 (31.0-36.0) g/dl RDW 12.1 (11.0-16.0) % Plt Count 232 D (160-400) X10*3/uL MPV 10.7 (9.4-12.4) fL Immature Gran % (Auto) 0.2 (0.0-0.4) % Neut % (Auto) 51.1 (45-73) % Lymph % (Auto) 34.5 (20-40) % [place] % (Auto) 6.0 (2-11) % Eos % (Auto) 7.0 H (0-4) % Baso % (Auto) 1.2 (0-2) % Lymph # (Auto) 2.1 (1.2-4.9) X10*3/uL [place] # (Auto) 0.4 (0.1-1.2) X10*3/uL Eos # (Auto) 0.4 (0.0-0.4) X10*3/uL Baso # (Auto) 0.1 (0.0-0.2) X10*3/uL Abs Immat Gran (auto) 0.01 (0.00-0.03) X10*3/uL Absolute Neuts (auto) 3.1 (2.0-8.3) x10*3/uL Absolute Nucleated RBC 0.000 (0.0-0.012) X10*3/uL Nucleated RBC % (auto) 0.0 (0.0-0.2) /100WBC Sodium 143 (135-145) mmol/L Potassium 4.0 (3.3-5.1) mmol/L Chloride 103 (96-108) mmol/L Carbon Dioxide 29 (22-29) mmol/L Anion Gap 15 (12-20) BUN 10 (9-16) mg/dL Creatinine 0.74 (0.5-1.4) mg/dL Estim Creat Clear Calc 162.0 Estimated GFR > 60 Random Glucose 122 H (60-115) mg/dL Calcium 9.7 (8.4-10.2) mg/dL Magnesium 2.0 (1.6-2.6) mg/dL Total Bilirubin 1.2 H (0.0-1.0) mg/dL AST 17 (5-37) U/L ALT 20 (0-40) U/L Alkaline Phosphatase 74 (39-117) U/L Troponin I High Sens < 2.7 (<3.5-35.0) ng/L Total Protein 7.8 (6.5-8.0) g/dL Albumin 4.8 (3.5-5.0) g/dL Urine Color Yellow Urine Appearance Clear Urine pH >= 9.0 (5.0-9.0) Ur Specific [place] 1.015 (1.005-1.025) Urine Protein Negative (Neg-Trace) mg/dL Urine Glucose (UA) Negative (Negative) mg/dL Urine Ketones Negative (Negative) mg/dL Urine Blood Negative (Negative) Urine Nitrite Negative (Negative) Ur Leukocyte Esterase Negative (Negative) Influenza Type A (PCR) NEGATIVE (Negative) Influenza Type B (PCR) NEGATIVE (Negative) RSV RNA Qual (PCR) NEGATIVE (Negative) SARS-CoV-2 RNA (RT-PCR) NEGATIVE (Negative) Independent Interpretation I performed an independent interpretation of an: EKG and Plain X-Ray (normal ) Interpretation: Rate: 63 Rhythm: NSR [place]: left Normal P waves. Normal BRAD. Normal QRS complex. ST T wave : normal no IAN qTC: normal prior studies: no acute ischemia The study has been interpreted contemporaneously by me. . Radiology Impression Discussion of test interpretation with radiology: I have reviewed the radiologist's reading. External Record Review External record reviewed: Inpatient record Discharge Plan Discharge Clinical Impression: Vasovagal syncope Patient Disposition: Home, Self-Care Instructions: Syncope (ED) Additional Instructions: take it easy today and stay hydrated in the future do not bear down. please be careful. return for chest pain, trouble breathing, fevers, black or blood stools or any other concerns. Prescriptions: No Action lisinopril 10 mg tablet 10 mg PO DAILY Qty: 90 1RF Stand Alone Forms: Work/School Release Interventions: ED Discharge Assessment Last Done: 09/03/23 14:05 Discharge Date/Time: 09/03/23 14:05
--- NOTE | 2023-09-03 12:21 | ECG_ITS ---
Test Reason : syncope Blood Pressure : / mmHG Vent. Rate : 063 BPM Atrial Rate : 063 BPM P-R Int : 158 ms QRS Dur : 098 ms QT Int : 388 ms P-R-T Axes : 028 -11 025 degrees QTc Int : 397 ms Normal sinus rhythm Normal ECG When compared with ECG of 19-AUG-2004 17:09, No significant changes seen Referred By: Tata Munoz Electronically Signed By:Dev Ibarra
--- NOTE | 2023-09-03 12:30 | PC.NURSE ---
a&ox4, vss and up to date. pt comes in today d/t unwitnessed 1 min long syncopal episode. pt states that he was waiting in the car for his brother, started drinking water, had coughing fit which induced syncopal episode. no headstrike/trauma related to episode. denies any pain or any other sx at this time. pt has hx of syncopal episodes - states last one was 20 years ago in high school. resting comfortably in no apparent distress. respirations even/unlabored. call perez placed within reach.
[2023-09-03 12:39] LABS: MANUAL DIFF FLAG NO
[2023-09-03 12:45] LABS: Basophils Absolute Auto 0.1 X10*3/uL (0.0-0.2); Basophils Percent Auto 1.2 % (0-2); Eosinophils Absolute Auto 0.4 X10*3/uL (0.0-0.4); Hematocrit 45.5 % (42.0-52.0); Imm Gran Abs Auto 0.01 X10*3/uL (0.00-0.03); Imm Gran Pct Auto 0.2 % (0.0-0.4); Lymphocytes Absolute Auto 2.1 X10*3/uL (1.2-4.9); Lymphocytes Percent Auto 34.5 % (20-40); Mean Corpuscular Hemoglobin 28.8 pg (27.0-33.0); Mean Corpuscular Volume 87.5 fL (80.0-98.0); Mean Platelet Volume 10.7 fL (9.4-12.4); Monocytes Absolute Auto 0.4 X10*3/uL (0.1-1.2); Neutrophils Absolute Auto 3.1 x10*3/uL (2.0-8.3); Neutrophils Percent Auto 51.1 % (45-73); Platelet Count 232 X10*3/uL (160-400); Red Cell Distribution Width 12.1 % (11.0-16.0)
--- NOTE | 2023-09-03 13:00 | PC.NURSE ---
pt returned from xray. ekg performed by tech. labs drawn/sent to lab.
[2023-09-03 13:04] LABS: Alanine Aminotransferase 20 U/L (0-40); Albumin Level 4.8 g/dL (3.5-5.0); Alkaline Phosphatase 74 U/L (39-117); Anion Gap 15 (12-20); Aspartate Amino Transferase 17 U/L (5-37); Bilirubin Total 1.2 mg/dL (0.0-1.0); Blood Urea Nitrogen 10 mg/dL (9-16); Calcium 9.7 mg/dL (8.4-10.2); Carbon Dioxide 29 mmol/L (22-29); Chloride 103 mmol/L (96-108); Estimated Glomerular Filt Rate > 60; Glucose Random 122 mg/dL (60-115); Sodium 143 mmol/L (135-145); Total Protein 7.8 g/dL (6.5-8.0)
[2023-09-03 13:09] VITALS: BP 126/71; PULSE 79; RESP 16; TEMP 36.9; O2SAT 95; O2SAT 97
[2023-09-03 13:15] LABS: Troponin-I High Sensitivity < 2.7 ng/L (<3.5-35.0)
[2023-09-03 13:21] LABS: Influenza A PCR NEGATIVE (Negative); Influenza B PCR NEGATIVE (Negative); Resp Syncy Virus RNA Qual PCR NEGATIVE (Negative); SARS COV2 PCR INHOUSE NEGATIVE (Negative)
[2023-09-03 14:00] LABS: Appearance Urine Clear; Color Urine Yellow; Glucose Urine UA Negative (Negative); Leukocyte Esterase Urine Negative (Negative); Nitrite Urine Negative (Negative); PH >= 9.0 (5.0-9.0); Specific Gravity - Urine 1.015 (1.005-1.025); Urine Blood Negative (Negative); Urine Ketones Negative (Negative); Urine Protein Negative (Neg-Trace)
== END 2023-09-03 14:05 | disposition home or self-care (01) ==
PROVIDERS: Physician Assistant Medical; Emergency Provider Emergency Medicine
DX: R55 Syncope and collapse (principal); R05.9 Cough, unspecified; Z20.822 Contact with and (suspected) exposure to COVID-19; Z20.828 Contact with and (suspected) exposure to other viral communicable diseases; Z79.899 Other long term (current) drug therapy
CPT/HCPCS: 0241U; 36415; 71046; 80053; 81003; 83735; 84484; 85025; 93005; 99283; 99285

== ENCOUNTER → 2023-09-03 12:21 | Outpatient (BNV) | payer SELFPAY | PROVIDERS: Emergency Provider Emergency Medicine; Visit Provider Internal Medicine Cardiovascular Disease | DX: R55 Syncope and collapse (principal) | CPT/HCPCS: 93010 ==

== ENCOUNTER 2024-01-19 12:18 | Outpatient (AMB) | payer BC, SELFPAY ==
--- NOTE | 2024-01-19 12:19 | MHC.PC.OV ---
Vital Signs 01/19/24 12:21 Height 5 ft 11 in Weight 212 lb BMI 29.6 BP 118/58 L Blood Pressure Location Rt brachial Position Sitting Respiration 14 Pulse 84 Pulse Source Pulse Oximeter Pulse Oximetry (%) 98 Oxygen Delivery Method Room Air Intake Visit Reasons: prema of care jaimes Intake Note: Patient is here to have a small bump on his forhead checked out. Patient reports family history of lipoma, patient reports having 2 bumps on his back that are tender. Title Examiner Required: No Accompanied by: Self / Same As Patient Allergies No Known Allergies Allergy (Verified 01/19/24 12:51) Medication List - Last Reconciled 01/19/24 by MASON Goodwin No Known Home Meds Tobacco use date assessed: 01/19/24 Dental Screening Dental Screen Date: 01/19/24 Did you have a dental visit in the last 12 months?: Yes Did you have a dental problem in the last 6 months where you did not have access to dental care?: No Was dental information given to patient?: Yes HPI HPI Comments History of Present Illness Details 33-year-old male with anemia, renal stones, lactose intolerant, recurrent boils, fatty liver, thyroid nodules. Health Maintenance: Tdap 2017 Specialists: None at this time Here today to est care and for a CPE: Fungal toe nails, has used oint in the past w/ some relief. Lump on forehead, started about 3 years ago. Had another one that was very close to this area, however it popped. Head a strike on this area w/ ball about 1 year ago and this caused the area to enlarge. The area is not painful. Has not had this evaluated. 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 Has never consulted w/ Surg. The areas are becoming bothersome. Incidental finding of thyroid nodules 02/2022 CT scan, has not had thyroid US yet. [facility] Medical History (Updated 01/19/24 @ 13:18 by MASON Goodwin) Elevated bilirubin Lactose intolerance Recurrent boils Kidney stone on right side Hypertension Surgical History (Updated 01/19/24 @ 12:29 by Rsoalina Jimenez CMA) No pertinent past surgical history Family History Mother High blood pressure Glaucoma Heart disease Cancer Lactose intolerance Father High blood pressure Heart disease Cancer Sleep apnea Brother High blood pressure Other Substance use disorder Social History (Updated 01/19/24 @ 12:30 by Rosalina Jimenez [facility]) Household Members: Family Household Members Other:: brother and parents Both parents involved: Yes Caregiver staying overnight: No Housing: House Are you a primary overnight caregiver to a significant other at home: No Do you presently have visiting nurse or other home services: No 75 years or older and lives alone: No Alcohol intake: current Alcohol intake frequency: holidays/special occasions only Patient Tobacco Use Status: Never used Tobacco e-Cigarette/Vaping Use: Never Used Use of substances other than those prescribed or required for medical reasons: No Have you been hit, kicked, punched, or otherwise hurt by someone within the past year? If so, by whom?: No Do you feel safe in your current relationship?: No Current Relationship Is there a partner from a previous relationship who is making you feel unsafe now?: No Are you made to feel afraid or neglected: No service: No Current occupational status: employed Current occupation: [employer] Current occupational exposures/hazards: No Cognitive needs: No Hearing needs: Yes (sensitive of L ear) Vision needs: Yes (wears glasses) Questionnaire PHQ-9 Over the last 2 weeks, how often have you been bothered by any of the following problems? 1. Little interest or pleasure in doing things: not at all 2. Feeling down, depressed, or hopeless: not at all 3. Trouble falling or staying asleep, or sleeping too much: not at all 4. Feeling tired or having little energy: not at all 5. Poor appetite or overeating: not at all 6. Feeling bad about yourself - or that you are a failure or have let yourself or your family down: not at all 7. Trouble concentrating on things, such as reading the newspaper or watching television: not at all 8. Moving or speaking so slowly that other people could have noticed. Or the opposite - being so fidgety or restless that you have been moving around a lot more than usual: not at all 9. Thoughts that you would be better off or of hurting yourself in some way: not at all Total score: 0 Depression Screening Interpretation: Negative Depression Screening Done: Yes 70254 - PHQ-9 Billing: Yes Source: Developed by Drs. Yuri Peter, Sharla Burton, Chandana Falcon and colleagues, with an educational luciano from [employer]. Thrive Questionnaire Date Thrive assessed: 01/19/24 I am a: Patient What is your living situation today?: I have a steady place to live Within the past 12 months, did the food you bought not last and you didn't have the money to get more?: Never true Within the past 12 months, did you worry whether your food would run out before you got money to buy more?: Never true Do you have trouble paying for medicines?: No Do you have trouble getting transportation to medical appointments?: No Do you have trouble paying your heating and electricity bill?: No Do you have trouble taking care of your child, family member or friend?: No Do you have trouble with day-to-day activities such as bathing, preparing meals, shopping, managing finances, etc.?: No Are you currently unemployed and looking for a job?: No Are you interested in more education?: No Please select the resources that you would like help with: None Currently or been in a relationship where the following occur: no concerns reported THRIVE Score: 0 AUDIT C Alcohol Use Questionnaire (AUDIT-C) 1. How often do you have a drink containing alcohol?: Never 3. How often do you have six or more drinks on one occasion?: Never Total Score: 0 Score Reviewed/Action Taken: Yes IVETT-7 AMB Questionnaire IVETT-7 Date IVETT - 7 assessed: 01/19/24 Feeling nervous, anxious, or on edge: 0 = Not at all Not being able to stop or control worryin = Not at all Worrying too much about different things: 0 = Not at all Trouble relaxin = Not at all Being so restless that it is hard to sit still: 0 = Not at all Becoming easily annoyed or irritable: 0 = Not at all Feeling afraid as if something awful might happen: 0 = Not at all Total IVETT-7 score (0-4 normal; 5-9 mild; 10-14 moderate; 15-21 severe): 0 Source: Developed by Sharla CaicedoW. Micheal, Chandana Falcon and colleagues, with an educational luciano from [employer]. IVETT-7 Assessment Billing IVETT-7 Assessment Tool: IVETT-7 Assessment 32344 Review of Systems Const Details: CONSTITUTIONAL: DENIES FEVER. SKIN: DENIES RASH. EYE: DENIES EYE PAIN. ENMT: DENIES SORE THROAT AND NASAL CONGESTION. RESPIRATORY: DENIES SHORTNESS OF BREATH AND COUGH. GASTROINTESTINAL: DENIES NAUSEA, VOMITING OR ABDOMINAL PAIN. CARDIOVASCULAR: DENIES CHEST PAIN AND SYNCOPE. GENITOURINARY: DENIES DYSURIA. MUSCULOSKELETAL: DENIES BACK PAIN AND EXTREMITY PAIN. NEUROLOGIC: DENIES HEADACHES, CONFUSION, AND WEAKNESS. PSYCHIATRIC: DENIES SUICIDAL THOUGHTS AND SUBSTANCE ABUSE. ALLERGY/ IMMUNOLOGIC: DENIES IMPAIRED IMMUNITY. Physical exam (Primary Care) Vital Signs: Last Vital Signs Pulse 84 01/19/24 12:21 Resp 14 01/19/24 12:21 BP 118/58 L 01/19/24 12:21 Pulse Ox 98 01/19/24 12:21 Oxygen Delivery Method Room Air 01/19/24 12:21 BMI result Body Mass Index 29.6 Tobacco/Smoking Status: Tobacco use Status Tobacco use date assessed 01/19/24 01/19/24 12:33 Patient Tobacco Use Status Never used Tobacco 01/19/24 12:33 e-Cigarette/Vaping Use Never Used 01/19/24 12:30 PHQ-9: PHQ-9 Score PHQ-9: Total score 0 01/19/24 12:33 Depression Screening Interpretation: Negative Thrive Assessment: Date of Thrive Assessment Date Thrive assessed 01/19/24 01/19/24 12:33 Currently or been in a relationship where the following occur: no concerns reported Const Other: General: Well developed, well nourished, in no acute distress. Appears stated age. Head: Normocephalic, atraumatic. cystic area, round, semifirm, mobile with well demarcated edges to R forehead. Eyes: Pupils are equal, round and reactive to light and accommodation. Conjunctivae are clear. Vision grossly normal. Ears: TMs clear AU, EACS WNL Nose: Patent, without discharge. Mouth: There are no ulcers or lesions noted. No inflammation, no post nasal drip, no plaques nor exudates. Neck: Supple, no adenopathy or thyromegaly. Lungs: Clear to auscultation bilaterally. No rales, rhonchi or wheeze noted. Good air flow in all damon. Heart: Regular rate and rhythm. No murmurs, click, rubs or gallops are noted. Abdomen: Bowel sounds present in all quadrants. The abdomen is soft, nontender, with no masses or organomegaly noted. No hernias are noted. Musculoskeletal: Joints are nontender, without swelling, redness, or effusions. Range of motion is observed to be normal. Pulses: Peripheral pulses are equal and palpable bilaterally. Extremities: No clubbing, cyanosis nor edema is noted. Neurologic: Gait and station normal. Cranial Nerves 2-12 intact. Motor strength grossly symmetrical and intact. No sensory loss. Balance normal. Skin: No rashes, ulcers noted. Turgor is good. Skin color is good. several round, mobile, nontender cystic areas palpable to lower back bilat,paraspinal. Cannot see them. Onychomycosis bilat great toe nails and all toe nails on R foot Psych: Normal eye contact, affect and mood appropriate, and normal interactions. Patient is alert and appropriate to context. Extremities: No clubbing, cyanosis or edema. Assessment and Plan Assessment & Plan (1) Well adult exam: Code(s): Z00.00 - Encounter for general adult medical examination without abnormal findings (2) Onychomycosis: Comment: refer to podiatry Code(s): B35.1 - Tinea unguium (3) Thyroid nodule: Comment: noted on CT scan 02/2022, incidental finding check labs and US Code(s): E04.1 - Nontoxic single thyroid nodule (4) Anemia: Comment: update labs Code(s): D64.9 - Anemia, unspecified Qualifiers: Anemia type: iron deficiency Iron deficiency anemia type: inadequate dietary iron intake Qualified Code(s): D50.8 - Other iron deficiency anemias (5) Multiple lipomas: Comment: US imaging to confirm, refer to Gen Surg Code(s): D17.9 - Benign lipomatous neoplasm, unspecified (6) Dermoid cyst of forehead: Comment: Us imaging to confirm, refer to [facility] Code(s): D23.39 - Other benign neoplasm of skin of other parts of face (7) Multiple lipomas: Comment: US imaging to confirm, refer to Gen Surg Code(s): D17.9 - Benign lipomatous neoplasm, unspecified (8) Dermoid cyst of forehead: Comment: Us imaging to confirm, refer to [facility] Code(s): D23.39 - Other benign neoplasm of skin of other parts of face (9) Multiple lipomas: Comment: US imaging to confirm, refer to Gen Surg Code(s): D17.9 - Benign lipomatous neoplasm, unspecified Orders: Orders US thyroid Today E04.1 - Nontoxic single thyroid nodule Comprehensive Met. Panel Today D64.9 - Anemia, unspecified, I10 - Essential (primary) hypertension, Z00.00 - Encounter for general adult medical examination without abnormal findings Hemoglobin A1c Today D64.9 - Anemia, unspecified, I10 - Essential (primary) hypertension, Z00.00 - Encounter for general adult medical examination without abnormal findings Microalbumin, Random (w Creat) Today D64.9 - Anemia, unspecified, I10 - Essential (primary) hypertension, Z00.00 - Encounter for general adult medical examination without abnormal findings Vitamin D 1,25 dihydroxy Today D64.9 - Anemia, unspecified, I10 - Essential (primary) hypertension, Z00.00 - Encounter for general adult medical examination without abnormal findings IRON PROFILE Today D64.9 - Anemia, unspecified, I10 - Essential (primary) hypertension, Z00.00 - Encounter for general adult medical examination without abnormal findings Vitamin B12 and Folate Today D64.9 - Anemia, unspecified, I10 - Essential (primary) hypertension, Z00.00 - Encounter for general adult medical examination without abnormal findings LDL Cholesterol Direct Today D64.9 - Anemia, unspecified, I10 - Essential (primary) hypertension, Z00.00 - Encounter for general adult medical examination without abnormal findings TSH reflex Free T4 Today D64.9 - Anemia, unspecified, I10 - Essential (primary) hypertension, Z00.00 - Encounter for general adult medical examination without abnormal findings Complete Blood Count no Diff Today D64.9 - Anemia, unspecified, I10 - Essential (primary) hypertension, Z00.00 - Encounter for general adult medical examination without abnormal findings Thyroid Peroxidase Antibodies Today D64.9 - Anemia, unspecified, I10 - Essential (primary) hypertension, Z00.00 - Encounter for general adult medical examination without abnormal findings US soft tiss head and/or neck Today D23.39 - Other benign neoplasm of skin of other parts of face US chest Today D17.9 - Benign lipomatous neoplasm, unspecified Referrals Plastic Surgery Referral D23.39 - Other benign neoplasm of skin of other parts of face Podiatry Referral B35.1 - Tinea unguium General Surgery Referral D17.9 - Benign lipomatous neoplasm, unspecified Patient Instructions: Return to office in about 6 weeks to discuss your labs as well as the ultrasound of your thyroid. Sooner as needed. Health screenings for men ages 40 to 64 You should visit your health care provider regularly, even if you feel healthy. The purpose of these visits is to: Screen for medical issues Assess your risk for future medical problems Encourage a healthy lifestyle Update vaccinations and other preventive care services Help you get to know your provider in case of an illness Information Even if you feel fine, you should still see your provider for regular checkups. These visits can help you avoid problems in the future. For example, the only way to find out if you have high blood pressure is to have it checked regularly. High blood sugar and high cholesterol level also may not have any symptoms in the early stages. Simple blood tests can check for these conditions. There are specific times when you should see your provider or receive specific health screenings. The [place] Preventive Services Task Force publishes a list of recommended screenings. Below are screening guidelines for men ages 40 to 64. BLOOD PRESSURE SCREENING Have your blood pressure checked at least once every year. Watch for blood pressure screenings in your area. Ask your provider if you can stop in to have your blood pressure checked. Ask your provider if you need your blood pressure checked more often if: You have diabetes, heart disease, kidney problems, or are overweight or have certain other health conditions You have a first-degree relative with high blood pressure You are Black Your blood pressure top number is from 120 to 129 mm Hg, or the bottom number is from 70 to 79 mm Hg If the top number is 130 mm Hg or greater or the bottom number is 80 mm Hg or greater, this is considered stage 1 hypertension. Schedule an appointment with your provider to learn how you can lower your blood pressure. Effects of age on blood pressure CHOLESTEROL SCREENING Cholesterol screening should begin at age 35 for men with no known risk factors for coronary heart disease. Repeat cholesterol screening should take place: Every 5 years for men with normal cholesterol levels More often if changes occur in lifestyle (including weight gain and diet) More often if you have diabetes, heart disease, kidney problems, or certain other conditions COLORECTAL CANCER SCREENING If you are under age 45, talk to your provider about getting screened. You may need to be screened if you have a strong family history of colon cancer or polyps. Screening may also be considered if you have risk factors such as a history of inflammatory bowel disease or polyps. If you are age 45 to 75, you should be screened for colorectal cancer. There are several screening tests available: A stool-based fecal occult blood (gFOBT) or fecal immunochemical test (FIT) every year A stool sDNA test every 1 to 3 years Flexible sigmoidoscopy every 5 years or every 10 years with stool testing FIT done every year CT colonography (virtual colonoscopy) every 5 years Colonoscopy every 10 years You may need a colonoscopy more often if you have risk factors for colorectal cancer, such as: Ulcerative colitis A personal or family history of colorectal cancer A history of growths in your colon called adenomatous polyps DENTAL EXAM Go to the dentist once or twice every year for an exam and cleaning. Your dentist will evaluate if you have a need for more frequent visits. DIABETES SCREENING All adults who do not have risk factors for diabetes should be screened starting at age 35 and repeated every 3 years. If you have other risk factors for diabetes, such as a first degree relative with diabetes, overweight or obesity, high blood pressure, prediabetes, or a history of heart disease, you may be tested more often. If you are overweight and have other risk factors, such as high blood pressure and are planning to become , screening is recommended. EYE EXAM Have an eye exam every 2 to 4 years ages 40 to 54 and every 1 to 3 years ages 55 to 64. Your provider may recommend more frequent eye exams if you have vision problems or glaucoma risk. Have an eye exam that includes an examination of your retina (back of your eye) at least every year if you have diabetes. IMMUNIZATIONS Commonly needed vaccines include: Flu shot: get one every year COVID-19 vaccine: ask your provider what is best for you Tetanus-diphtheria and acellular pertussis (Tdap) vaccine: have as one of your tetanus-diphtheria vaccines if you did not receive it as an adolescent Tetanus-diphtheria: have a booster (or Tdap) every 10 years Varicella vaccine: receive 2 doses if you never had chickenpox or the varicella vaccine and were born in 1980 or after Hepatitis B vaccine: receive 2, 3, or 4 doses, depending on your exact circumstances, if you did not receive these as a child or adolescent, until age 59 Shingles (herpes zoster) vaccine: at or after age 50 Ask your provider if you should receive other immunizations, especially if you have certain medical conditions, such as diabetes or are at increased risk for some diseases such as pneumonia. INFECTIOUS DISEASE SCREENING Screening for hepatitis C: all adults ages 18 to 79 should get a one-time test for hepatitis C. Screening for human immunodeficiency virus (HIV): all people ages 15 to 65 should get a one-time test for HIV. Depending on your lifestyle and medical history, you may need to be screened for infections such as syphilis, chlamydia, and other infections. LUNG CANCER SCREENING You should have an annual screening for lung cancer with low-dose computed tomography (LDCT) if: You are age 50 to 80 years AND You have a 20 pack-year smoking history AND You currently smoke or have quit within the past 15 years OSTEOPOROSIS SCREENING If you are age 50 to 64 and have risk factors for osteoporosis, you should discuss screening with your provider. Risk factors can include long-term steroid use, low body weight, smoking, heavy alcohol use, having a fracture after age 50, or a family history of hip fracture or osteoporosis. Osteoporosis PHYSICAL EXAM All adults should visit their provider from time to time, even if they are healthy. The purpose of these visits is to: Screen for diseases Assess risk of future medical problems Encourage a healthy lifestyle Update vaccinations and other preventive care services Maintain a relationship with a provider in case of an illness Your height, weight, and body mass index (BMI) should be checked at every exam. During your exam, your provider may ask you about: Depression and anxiety Diet and exercise Alcohol and tobacco use Safety, such as use of seat belts and smoke detectors Your medicines and risk for interactions PROSTATE CANCER SCREENING If you're 55 through 69 years old, before having the test, talk to your provider about the pros and cons of having a PSA test. Ask about: Whether screening decreases your chance of dying from prostate cancer. Whether there is any harm from prostate cancer screening, such as side effects from testing or overtreatment of cancer when discovered. Whether you have a higher risk of prostate cancer than others. If you are age 55 or younger, screening is not generally recommended. You should talk with your provider about if you have a higher risk for prostate cancer. Risk factors include: Having a family history of prostate cancer (especially a brother or father) Being If you choose to be tested, the PSA blood test is repeated over time (yearly or less often), though the best frequency is not known. Prostate examinations are no longer routinely done on men with no symptoms. Prostate cancer SKIN EXAM Your provider may check your skin for signs of skin cancer, especially if you're at high risk. People at high risk include those who have had skin cancer before, have close relatives with skin cancer, or have a weakened immune system. TESTICULAR EXAM The [place] Preventive Services Task Force (USPSTF) now recommends against performing testicular self-exams. Doing testicular self-exams has been shown to have little to no benefit. Coding Level of Care Code Est Pt Prev Care 18-39y(67272) Diagnoses Well adult exam Z00.00 Onychomycosis B35.1 Thyroid nodule E04.1 Iron deficiency anemia secondary to inadequate dietary iron intake D50.8 Anemia type: iron deficiency Iron deficiency anemia type: inadequate dietary iron intake Multiple lipomas D17.9 Dermoid cyst of forehead D23.39 Additional Codes IVETT-7 Assessment Billing - IVETT-7 Assessment Tool: IVETT-7 Assessment 13202 ([id number])
[2024-01-19 12:21] VITALS: BP 118/58; PULSE 84; RESP 14; O2SAT 98; BMI 29.6
== END 2024-01-19 13:13 | disposition home or self-care (01) ==
PROVIDERS: PCP Hospitalist; Visit Provider Nurse Practitioner Family
DX: Z00.00 Encounter for general adult medical examination without abnormal findings (principal); B35.1 Tinea unguium; E04.1 Nontoxic single thyroid nodule; D50.8 Other iron deficiency anemias; D17.9 Benign lipomatous neoplasm, unspecified; D23.39 Other benign neoplasm of skin of other parts of face
CPT/HCPCS: 99395

== ENCOUNTER 2024-02-01 15:25 | Outpatient (REF) | payer BC, SELFPAY ==
--- NOTE | ~2024-02-01 | US_ITS ---
EXAMINATION: US SOFT TISSUE BACK CLINICAL INFORMATION: Benign lipomatous neoplasm, unspecified. Soft tissue, multiple lipomas on posterior trunk. COMPARISON: CT soft tissue neck 02/21/2022. TECHNIQUE: Linear transducer grayscale and color Doppler examination of the posterior trunk. FINDINGS: Targeted ultrasound images were obtained by the camp manager of the area of concern as indicated by the patient in the along the right, left and mid lower back regions. Radiologist was not in attendance. Images were later provided for interpretation. There is a 1.5 x 0.8 x 1.0 cm mass in the indicated area along the left. Three solid masses are identified in the areas of concern indicated by the patient. A 0.4 x 0.3 x 0.4 cm midline mass appears echogenic with no internal vascularity. Right 1.7 x 1.1 x 2.4 cm and left 1.5 x 0.8 x 1.0 cm masses demonstrate well-circumscribed margins, are wider than tall, hypoechoic with internal striations and demonstrate minimal vascularity. US/US abdomen limited IMPRESSION: Three superficial masses in the areas indicated by the patient as detailed above. Recommend correlation with clinical exam recommended to determine further management including additional imaging, treatment or biopsy. Follow up ultrasound could be obtained in 3 months.
--- NOTE | ~2024-02-01 | US_ITS ---
EXAMINATION: US THYROID CLINICAL INFORMATION: Nontoxic single thyroid nodule. COMPARISON: CT of neck 02/21/2022. TECHNIQUE: Linear transducer grayscale and color Doppler examination with attention to the region of the thyroid. FINDINGS: SIZE: Measurements of the thyroid lobes and nodules are given in sagittal, anteroposterior and transverse dimensions respectively. Right Thyroid Lobe: 5.2 x 3.8 x 2.1 cm, volume 21.6 mL. Parenchyma: The gland echotexture is heterogeneous. Thyroid vascularity is increased. Left Thyroid Lobe: 5.5 x 2.5 x 2.0 cm, volume 14.1 mL. Parenchyma: The gland echotexture is heterogeneous. Thyroid vascularity is increased. Isthmus: 0.9 cm in maximum AP dimension. No focal thyroid nodule is seen. NODES: No lymphadenopathy is seen in the tissue surrounding the thyroid gland. ADDITIONAL FINDINGS: Targeted ultrasound images were obtained by the waterfront director of the area of concern as indicated by the patient in the soft tissues superior to the right elbow demonstrate a 0.8 x 0.4 x 0.6 cm slightly hypoechoic mass with hypoechoic rim and no internal vascularity. Radiologist was not in attendance. Images were later provided for interpretation. US/US thyroid IMPRESSION: 1. No focal thyroid nodule is seen. 2. Targeted ultrasound images were obtained by the waterfront director of the area of concern as indicated by the patient in the soft tissues superior to the right elbow demonstrate a 0.8 x 0.4 x 0.6 cm slightly hypoechoic mass with hypoechoic rim and no internal vascularity. Decisions regarding further imaging, treatment or biopsy should be based on the clinical exam, as not all abnormalities are detectable on ultrasound studies. ACR TI-RADS RECOMMENDATION REFERENCE: Ultrasound-guided fine-needle aspiration, followup ultrasound, no further follow up. * TR1 (0 point) and TR2 (2 points): No FNA or follow up. * TR3 (3 points): FNA if more than or equal to 2.5 cm in maximum dimension, followup ultrasound in 1, 3 and 5 years if 1.5 to 2.4 cm in maximum dimension. * TR4 (4-6 points): FNA if more than or equal to 1.5 cm in maximum dimension, followup ultrasound in 1, 2, 3 and 5 years if 1 to 1.4 cm in maximum dimension. * TR5 (more than or equal to 7 points): FNA if more than or equal to 1 cm in maximum dimension, followup ultrasound every year for 5 years if 0.5 to 0.9 cm in maximum dimension. * TR3, TR4 or TR5 nodules that are below the size threshold for followup receive no follow up.
== END 2024-02-01 15:26 | disposition home or self-care (01) ==
LOC: HO.US 15:25
PROVIDERS: PCP Nurse Practitioner Family; Visit Provider Nurse Practitioner Family
DX: E04.1 Nontoxic single thyroid nodule (principal); D17.9 Benign lipomatous neoplasm, unspecified; D23.39 Other benign neoplasm of skin of other parts of face
CPT/HCPCS: 76536; 76705

== ENCOUNTER 2024-02-15 16:25 | Outpatient (REF) | payer BC, SELFPAY ==
[2024-02-15 16:52] LABS: Hematocrit 43.2 % (42.0-52.0); Hemoglobin 14.8 g/dl (14.0-18.0); Mean Corpuscular HGB Conc 34.3 g/dl (31.0-36.0); Mean Corpuscular Hemoglobin 29.8 pg (27.0-33.0); Mean Corpuscular Volume 87.1 fL (80.0-98.0); Mean Platelet Volume 10.9 fL (9.4-12.4); Platelet Count 233 X10*3/uL (160-400); Red Blood Count 4.96 X10*6/uL (4.60-5.80); White Blood Count 7.9 X10*3/uL (4.8-10.8)
[2024-02-15 17:05] LABS: Estimated Average Glucose 114 mg/dL; Hemoglobin A1c % 5.6 % (<6.0)
[2024-02-15 18:04] LABS: Alanine Aminotransferase 22 U/L (0-40); Albumin Level 4.8 g/dL (3.5-5.0); Alkaline Phosphatase 84 U/L (39-117); Anion Gap 13 (12-20); Aspartate Amino Transferase 18 U/L (5-37); Bilirubin Total 1.1 mg/dL (0.0-1.0); Blood Urea Nitrogen 11 mg/dL (9-16); Calcium 9.9 mg/dL (8.4-10.2); Carbon Dioxide 30 mmol/L (22-29); Chloride 105 mmol/L (96-108); Estimated Glomerular Filt Rate > 60; Glucose Random 85 mg/dL (60-115); Iron 94 mcg/dL (45-160); Percent Iron Saturation 32 % (15-50); Potassium 3.7 mmol/L (3.3-5.1); Sodium 144 mmol/L (135-145); Total Iron Binding Capacity 293 mcg/dL (228-428); Total Protein 7.8 g/dL (6.5-8.0); Unsaturated Iron Binding 199 ug/dL
[2024-02-15 18:19] LABS: TSH reflex Free T4 2.81 uIU/mL (0.32-4.0)
[2024-02-15 18:32] LABS: Folate 13.8 ng/mL (> or = 4.0); Vitamin B12 684 pg/mL (200-900)
[2024-02-15 18:50] LABS: Creatinine Urine 181.78 mg/dL; Microalbum/Creatinine Ratio Ur 4.4 ug/mg cr (<30)
[2024-02-16 17:13] LABS: LDL Cholesterol Direct 130 mg/dL (<100)
[2024-02-16 22:32] LABS: Thyroid Peroxidase Antibodies 433 IU/mL (<9)
[2024-02-18 21:44] LABS: VITAMIN D (1,25 OH) D3 49 pg/mL; Vit D (1,25-Dihydroxy) Total 49 pg/mL (18-72); Vitamin D (1,25 OH) D2 <8 pg/mL
== END 2024-02-15 16:26 | disposition home or self-care (01) ==
LOC: HO.LAB 16:25
PROVIDERS: PCP Nurse Practitioner Family; Visit Provider Nurse Practitioner Family
DX: Z00.00 Encounter for general adult medical examination without abnormal findings (principal); D64.9 Anemia, unspecified; I10 Essential (primary) hypertension
CPT/HCPCS: 36415; 80053; 82043; 82570; 82607; 82652; 82746; 83036; 83540; 83721; 84443; 85027; 86376

== ENCOUNTER 2024-02-16 15:52 | Outpatient (AMB) | payer BC, SELFPAY ==
[2024-02-16 15:46] VITALS: BP 120/70; PULSE 76; O2SAT 96; BMI 29.8
--- NOTE | 2024-02-16 15:46 | MHC.PC.OV ---
Vital Signs 02/16/24 15:46 Height 5 ft 11 in Weight 213 lb 8 oz BMI 29.8 BP 120/70 Blood Pressure Location Lt brachial Position Sitting Pulse 76 Pulse Source Pulse Oximeter Pulse Oximetry (%) 96 Oxygen Delivery Method Room Air Intake Visit Reasons: est/ fu with mariana about ultrasound Intake Note: Patient is here to go over ultrasound and blood work today. Allergies No Known Allergies Allergy (Verified 02/16/24 15:51) Tobacco use date assessed: 02/16/24 Dental Screening Dental Screen Date: 01/19/24 HPI HPI Comments History of Present Illness Details 33-year-old male with anemia, renal stones, lactose intolerant, recurrent boils, fatty liver, thyroid nodules. Health Maintenance: Tdap 2017 Specialists: Gen Surg Podiatry Plastics Here today to follow up on imaging as well as labs from last office visit. Labs from 02/15/2024 showing normal CBC, normal electrolytes, normal renal function, A1c 5.6%, normal iron profile, mild elevation in total bilirubin 1.1, normal LFTs, normal B12, normal folate, normal TSH, normal urine microalbumin creatinine ratio Abdominal ultrasound 02/01/2024 1.5 x 0.8 x 1.0 cm mass along the left. Three solid masses are identified in the areas of concern indicated by the patient which is along the right, left and mid lower back regions. A 0.4 x 0.3 x 0.4 cm midline mass appears echogenic with no internal vascularity. On the right there is a 1.7 x 1.1 x 2.4 cm and a left 1.5 x 0.8 x 1.0 cm mass which demonstrates well-circumscribed margins, wider than tall, hypoechoic with internal striations and demonstrates minimal vascularity. The recommendation is to correlate clinically or repeat the ultrasound in 3 months. Thyroid ultrasound 02/01/2024 SIZE: Measurements of the thyroid lobes and nodules are given in sagittal, anteroposterior and transverse dimensions respectively. Right Thyroid Lobe: 5.2 x 3.8 x 2.1 cm, volume 21.6 mL. Parenchyma: The gland echotexture is heterogeneous. Thyroid vascularity is increased. Left Thyroid Lobe: 5.5 x 2.5 x 2.0 cm, volume 14.1 mL. Parenchyma: The gland echotexture is heterogeneous. Thyroid vascularity is increased. Isthmus: 0.9 cm in maximum AP dimension. No focal thyroid nodule is seen. NODES: No lymphadenopathy is seen in the tissue surrounding the thyroid gland. ADDITIONAL FINDINGS: Targeted ultrasound images were obtained by the administrative support assoc of the area of concern as indicated by the patient in the soft tissues superior to the right elbow demonstrate a 0.8 x 0.4 x 0.6 cm slightly hypoechoic mass with hypoechoic rim and no internal vascularity. Radiologist was not in attendance. Images were later provided for interpretation. IMPRESSION: 1. No focal thyroid nodule is seen. 2. Targeted ultrasound images were obtained by the administrative support assoc of the area of concern as indicated by the patient in the soft tissues superior to the right elbow demonstrate a 0.8 x 0.4 x 0.6 cm slightly hypoechoic mass with hypoechoic rim and no internal vascularity. Decisions regarding further imaging, treatment or biopsy should be based on the clinical exam, as not all abnormalities are detectable on ultrasound studies. Patient was not aware he was placed a call and schedule the appointments. He was made aware today and I have asked him to obtain information from the front office. He should schedule an appointment with the general surgery team 1st. Weight on the plastics referral at this time until I am able to clarify the read on his imaging. Unclear to me if the impression 2. In the thyroid ultrasound is of his scalp. Patient reports that the scalp/forehead area was imaged. I have called Radiology for a reread. Spoke to Moira. She reports she will have the radiologist add an addendum. If the thyroid ultrasound is normal and there were no nodules seen there was no need to reimage the thyroid. However if there is any abnormalities we will need to reconsider a repeat ultrasound or a referral to endocrinology. We will hold off at this time as his thyroid labs are normal and he has no symptoms. [facility] Medical History (Updated 02/16/24 @ 16:20 by MASON Goodwin) Elevated bilirubin Lactose intolerance Recurrent boils Kidney stone on right side Hypertension Surgical History (Updated 01/19/24 @ 12:29 by Rosalina Jimenez CMA) No pertinent past surgical history Family History Mother High blood pressure Glaucoma Heart disease Cancer Lactose intolerance Father High blood pressure Heart disease Cancer Sleep apnea Brother High blood pressure Other Substance use disorder Social History (Updated 01/19/24 @ 12:30 by Rosalina Jimenez CMA) Household Members: Family Household Members Other:: brother and parents Both parents involved: Yes Caregiver staying overnight: No Housing: House Are you a primary patient care assistant to a significant other at home: No Do you presently have visiting nurse or other home services: No 75 years or older and lives alone: No Alcohol intake: current Alcohol intake frequency: holidays/special occasions only Patient Tobacco Use Status: Never used Tobacco e-Cigarette/Vaping Use: Never Used service: No Current occupational status: employed Current occupation: [employer] Current occupational exposures/hazards: No Cognitive needs: No Hearing needs: Yes (sensitive of L ear) Vision needs: Yes (wears glasses) Questionnaire Thrive Questionnaire Date Thrive assessed: 01/19/24 IVETT-7 AMB Questionnaire IVETT-7 Date IVETT - 7 assessed: 01/19/24 Source: Developed by Drs. Yuri Peter, Sharla Burton, Chandana Falcon and colleagues, with an educational luciano from [employer]. Review of Systems Const All systems reviewed & are unremarkable except as noted in HPI and below Physical exam (Primary Care) Vital Signs: Last Vital Signs Pulse 76 02/16/24 15:46 BP 120/70 02/16/24 15:46 Pulse Ox 96 02/16/24 15:46 Oxygen Delivery Method Room Air 02/16/24 15:46 BMI result Body Mass Index 29.8 Tobacco/Smoking Status: Tobacco use Status Tobacco use date assessed 02/16/24 02/16/24 15:52 Patient Tobacco Use Status Never used Tobacco 02/16/24 15:47 e-Cigarette/Vaping Use Never Used 02/16/24 15:47 Thrive Assessment: Date of Thrive Assessment Date Thrive assessed 01/19/24 02/16/24 15:47 Const Other: General: Well developed, well nourished, in no acute distress. Appears stated age. Head: Normocephalic, atraumatic. cystic area, round, semifirm, mobile with well demarcated edges to R forehead. Neck: Supple, no adenopathy or thyromegaly. Skin: No rashes, ulcers noted. Turgor is good. Skin color is good. several round, mobile, nontender cystic areas palpable to lower back bilat,paraspinal. Cannot see them. Onychomycosis bilat great toe nails and all toe nails on R foot Psych: Normal eye contact, affect and mood appropriate, and normal interactions. Patient is alert and appropriate to context. Extremities: No clubbing, cyanosis or edema. Assessment and Plan Assessment & Plan (1) Dermoid cyst of forehead: Comment: refer to [facility] Plastics Code(s): D23.39 - Other benign neoplasm of skin of other parts of face (2) Multiple lipomas: Comment: refer to Gen Surg Code(s): D17.9 - Benign lipomatous neoplasm, unspecified (3) Thyroid nodule: Comment: noted on CT scan 02/2022, incidental finding Code(s): E04.1 - Nontoxic single thyroid nodule (4) Onychomycosis: Comment: refer to podiatry Code(s): B35.1 - Tinea unguium Plan: This note is constructed using voice recognition software. While every effort has been made to ensure accuracy in analytical chemistry teacher, still errors may have been included Sometimes, these errors may affect the content or meaning of the given sentence . Total time spent caring for the patient today was 45 minutes. This includes time spent before the visit reviewing the chart, time spent during the visit, and time spent after the visit on documentation Patient Instructions: Plan to return to office in 1 year for complete physical exam. I will update you via the portal with a reread on the ultrasound imaging. At that time we can discuss if we need to repeat your thyroid ultrasound versus make the appointment with the plastic surgeon to evaluate the area on her right forehead. Please always feel free to return to the office sooner should you have any needs or concerns. Coding Level of Care Code Est Pt Level 5 (96600) Diagnoses Dermoid cyst of forehead D23.39 Multiple lipomas D17.9 Thyroid nodule E04.1 Onychomycosis B35.1
== END 2024-02-16 16:12 | disposition home or self-care (01) ==
LOC: HO.HMGFM 15:52
PROVIDERS: PCP Nurse Practitioner Family; Visit Provider Nurse Practitioner Family
DX: D23.39 Other benign neoplasm of skin of other parts of face (principal); D17.9 Benign lipomatous neoplasm, unspecified; E04.1 Nontoxic single thyroid nodule; B35.1 Tinea unguium
CPT/HCPCS: 99215

== ENCOUNTER 2024-05-04 15:09 | Outpatient (AMB) | payer BC, SELFPAY ==
--- NOTE | 2024-05-04 15:11 | A.OFFVIS_ITS ---
Vital Signs 3 05/04/24 15:29 Height 5 ft 11 in Weight 2158 lb BMI 300.9 BP 133/64 Blood Pressure Location Lt brachial Position Sitting Pulse 58 Intake Visit Reasons: multiple lipomas, skin lesion Intake Note: Patient is seen in office for evaluation of multiple skin lesions. Pt c/o: multiple lipomas onset 3 +yrs, one in the forehead and multiple in the back, minimal pain, no discharge, redness or swelling Brake Repair Mechanic Required: No Accompanied by: Self / Same As Patient Allergies No Known Allergies Allergy (Verified 05/04/24 15:24) HPI Comments Details: 33-year-old male patient Presenting for evaluation of several soft tissue masses. He feels that they began approximately 3 years ago and has gradually increased in size. Of note he has a a lump located in the right forehead which was small until he played volleyball and was struck in the head by the volleyball. Subsequent to this, the lump has increased in size. He denies significant pain, redness or discharge. In the low back he feels 2 lumps on either side of the spine both of which are tender when palpated. He has requested excision of all 3 lesions. [facility] Medical History Thyroid nodule Elevated bilirubin Lactose intolerance Recurrent boils Kidney stone on right side Hypertension Surgical History No pertinent past surgical history Family History Mother High blood pressure Glaucoma Heart disease Cancer Lactose intolerance Father High blood pressure Heart disease Cancer Sleep apnea Brother High blood pressure Other Substance use disorder Social History Household Members: Family Household Members Other:: brother and parents Both parents involved: Yes Caregiver staying overnight: No Housing: House Are you a primary nanny caregiver to a significant other at home: No Do you presently have visiting nurse or other home services: No 75 years or older and lives alone: No Alcohol intake: current Alcohol intake frequency: holidays/special occasions only Patient Tobacco Use Status: Never used Tobacco e-Cigarette/Vaping Use: Never Used service: No Current occupational status: employed Current occupation: [employer] Current occupational exposures/hazards: No Cognitive needs: No Hearing needs: Yes (sensitive of L ear) Vision needs: Yes (wears glasses) Review of Systems Const All systems reviewed & are unremarkable except as noted in HPI and below Physical Exam Vital Signs: Last Vital Signs Pulse 58 05/04/24 15:29 BP 133/64 05/04/24 15:29 BMI result Body Mass Index 300.9 Const General: cooperative and no acute distress Nutritional Appearance: well nourished Orientation/consciousness: patient oriented x3 Limitations: no limitations HEENT Head: Yes normocephalic and Yes atraumatic Head images: 2 1. 1 cm Pilar cyst right forehead Ears: hearing grossly normal bilaterally Resp Effort & Inspection: normal respiratory effort, no audible wheezes, no cough and no respiratory distress Cardio Jugular venous distension: no JVD GI Inspection: Yes normal to inspection Back/Spine/Pelvis Back/spine/pelvis image: 2 1. 2 cm soft tissue lump consistent with lipoma 2. 1.5 cm soft tissue mass consistent with lipoma Skin Other: Warm, dry, no rash Neuro General: patient oriented x3 Extrem General: Yes no clubbing, cyanosis or edema Assessment & Plan Assessment & Plan (1) Lipoma: Comment: bilateral low back Code(s): D17.9 - Benign lipomatous neoplasm, unspecified Category: Medical Qualifiers: Lipoma location: trunk Qualified Code(s): D17.1 - Benign lipomatous neoplasm of skin and subcutaneous tissue of trunk (2) Pilar cyst: Comment: right forehead Code(s): L72.11 - Pilar cyst Category: Medical Plan 33-year-old male patient presenting with 3 lesions including 2 lipoma of the bilateral low back and a epidermal inclusion cyst or Pilar cyst in the right forehead. He has requested excision of all 3 lesions. After discussion of the procedure, risks, and alternatives, he consents to the excision of the bilateral low back lipomas and right forehead Pilar cyst. This will be scheduled as a minor surgery under local anesthesia. Coding Level of Care Code New Pt Level 4 (37666) Diagnoses Lipoma of torso D17.1 Lipoma location: trunk Pilar cyst L72.11
[2024-05-04 15:29] VITALS: BP 133/64; PULSE 58; BMI 300.9
== END 2024-05-04 15:31 | disposition home or self-care (01) ==
PROVIDERS: PCP Nurse Practitioner Family; Visit Provider Surgery
DX: D17.1 Benign lipomatous neoplasm of skin and subcutaneous tissue of trunk (principal); L72.11 Pilar cyst
CPT/HCPCS: 99204

== ENCOUNTER → 2024-05-04 15:09 | Outpatient (BNVA) | payer BC, SELFPAY | PROVIDERS: PCP Nurse Practitioner Family; Visit Provider Surgery ==

== ENCOUNTER 2024-05-30 13:38 | Outpatient (REF) | payer BC, SELFPAY ==
[2024-05-30 14:08] VITALS: BP 166/83; PULSE 64; RESP 18; TEMP 36.4; O2SAT 98; BMI 27.9
--- NOTE | 2024-05-30 14:51 | P.OP_ITS ---
Operative Note Operative Note Date of Service: 05/30/24 Narrative: Preoperative diagnosis: Pilar cyst right forehead, lipoma bilateral lower back Postoperative diagnosis: Same Procedure: Excision Pilar cyst right forehead and lipoma bilateral lower back Surgeon: Arthur Durant MD Web Design Specialist: None Anesthesia: Local 1% lidocaine with epinephrine Indications for procedure: 33-year-old male patient presenting with a soft tissue mass in the forehead mobile within the subcutaneous tissue consistent with a Pilar cyst. Pilar cyst measured approximately 1 cm in diameter. In the low back, 2 lipomas were palpable on either side each measuring approximately 1.5 cm in diameter. Operative findings: Pilar cyst right forehead, lipoma x2 lower back bilaterally Specimen: Pilar cyst, lipoma x2 Estimated blood loss: Less than 2 mL Complications: None Procedure details: Patient was brought to the minor surgery suite and placed in a supine position. The site of surgery was confirmed by the patient in the forehead and lower back. After assuring informed consent the skin was prepped with Betadine in the forehead and draped in a sterile fashion. Local anesthesia was infiltrated in a transverse fashion and a transverse incision made directly over the palpable lump. The incision was carried out into subcutaneous tissue. Blunt dissection was then used to dissect the Pilar cyst from the surrounding subcutaneous tissue. This was sent off the table and sent to pathology for further examination. Skin was then closed using a single 6 0 nylon suture. A sterile bandage was then applied. The patient was then placed in a prone position. The site of the 2 lipomas were marked and confirmed by the patient. The skin was then prepped with Betadine and draped in a sterile fashion. Local was infiltrated in a transverse fashion over each lipoma. Incision was then made with a scalpel and carried out through subcutaneous tissue up to the lipoma beginning on the right lower back blunt dissection was used to dissect the lipoma from the surrounding subcutaneous tissue. This was then incised with the Metzenbaum scissors. The lesion was excised and sent to pathology for further examination. Light pressure was held to maintain hemostasis. Skin was then closed using a running subcuticular 4-0 Polysorb suture. Attention was then directed to the left lower back lesion were again incision was made directly over the lipoma and carried out through subcutaneous tissue. Combination of sharp and blunt dissection was then used to dissect the lipoma from the surrounding subcutaneous tissue. This was then passed off the table and sent to pathology for further examination. Skin was then closed using a running subcuticular 4-0 Polysorb suture. Sterile dressings consisting of Steri-Strips, 2 x 2 gauze and Tegaderm were then applied. The patient tolerated the procedure well. He was discharged to home in stable condition.
== END 2024-05-30 13:39 | disposition home or self-care (01) ==
LOC: HO.MS 13:38
PROVIDERS: PCP Nurse Practitioner Family; Visit Provider Surgery
PROC: (CPT 11402; principal; 2024-05-30 14:00)
PROC: (CPT 11402; 2024-05-30 14:00)
DX: D17.1 Benign lipomatous neoplasm of skin and subcutaneous tissue of trunk (principal); L72.11 Pilar cyst
CPT/HCPCS: 11402 ×2; 11441; 88304

== ENCOUNTER → 2024-05-30 13:38 | Outpatient (BNV) | payer BC, SELFPAY | PROVIDERS: PCP Nurse Practitioner Family; Visit Provider Surgery | DX: D17.1 Benign lipomatous neoplasm of skin and subcutaneous tissue of trunk (principal); L72.0 Epidermal cyst | CPT/HCPCS: 11441; 21930 ==

== ENCOUNTER 2024-06-16 09:45 | Outpatient (AMB) | payer BC, SELFPAY ==
--- NOTE | 2024-06-16 10:06 | A.OFFVIS_ITS ---
Vital Signs 3 06/16/24 10:07 Height 5 ft 11 in Weight 198 lb 6.656 oz BMI 27.7 Respiration 18 Pulse 62 Intake Visit Reasons: S/P excision lipoma of back x2, Rt forehead cyst Intake Note: Patient is seen in office for post op assessment post excision of back lipoma x2 and right forehead cyst. Pt c/o: no concerns suture removed at visit Yarding And Folding Machine Operator Required: No Accompanied by: Self / Same As Patient Allergies No Known Allergies Allergy (Verified 06/16/24 10:07) HPI Comments Details: Patient returns following excision of 2 lipomas of the lower back as well as a right forehead skin lesion. Both lesions in the back were lipomas and the lesion in the forehead was an epidermal cyst. He tolerated the procedure well denies any ongoing symptoms. He returns today for suture removal. He did report a skin rash after having a tattoo on his right forearm. This has subsequently resolved. [facility] Medical History Thyroid nodule Elevated bilirubin Lactose intolerance Recurrent boils Kidney stone on right side Hypertension Surgical History No pertinent past surgical history Family History Mother High blood pressure Glaucoma Heart disease Cancer Lactose intolerance Father High blood pressure Heart disease Cancer Sleep apnea Brother High blood pressure Other Substance use disorder Social History Household Members: Family Household Members Other:: brother and parents Both parents involved: Yes Caregiver staying overnight: No Housing: House Are you a primary resident care provider to a significant other at home: No Do you presently have visiting nurse or other home services: No 75 years or older and lives alone: No Alcohol intake: current Alcohol intake frequency: holidays/special occasions only Patient Tobacco Use Status: Never used Tobacco e-Cigarette/Vaping Use: Never Used service: No Current occupational status: employed Current occupation: [employer] Current occupational exposures/hazards: No Cognitive needs: No Hearing needs: Yes (sensitive of L ear) Vision needs: Yes (wears glasses) Physical Exam Vital Signs: Last Vital Signs Pulse 62 06/16/24 10:07 Resp 18 06/16/24 10:07 BMI result Body Mass Index 27.7 Const General: comfortable Nutritional Appearance: well nourished Orientation/consciousness: patient oriented x3 HEENT Head images: 2 1. Incision right forehead, clean, dry, and intact. Back/Spine/Pelvis Other: Bilateral lower back incisions are clean, dry, and intact without redness or discharge. Back/spine/pelvis image: 2 1. 2. Neuro General: patient oriented x3 Assessment & Plan Assessment & Plan (1) Pilar cyst: Comment: right forehead Code(s): L72.11 - Pilar cyst Category: Medical (2) Lipoma: Comment: bilateral low back Code(s): D17.9 - Benign lipomatous neoplasm, unspecified Category: Medical Qualifiers: Lipoma location: trunk Qualified Code(s): D17.1 - Benign lipomatous neoplasm of skin and subcutaneous tissue of trunk Plan Patient returns following excision of a bilateral lower back lipomas and right forehead skin cyst. He tolerated procedure well the wounds are healing nicely. He should follow up as needed. Coding Level of Care Code Global (62076) Diagnoses Pilar cyst L72.11 Lipoma of torso D17.1 Lipoma location: trunk
[2024-06-16 10:07] VITALS: PULSE 62; RESP 18; BMI 27.7
== END 2024-06-16 10:11 | disposition home or self-care (01) ==
PROVIDERS: PCP Nurse Practitioner Family; Visit Provider Surgery
DX: L72.11 Pilar cyst (principal); D17.1 Benign lipomatous neoplasm of skin and subcutaneous tissue of trunk
CPT/HCPCS: 99024

== ENCOUNTER → 2024-06-16 09:45 | Outpatient (BNVA) | payer BC, SELFPAY | PROVIDERS: PCP Nurse Practitioner Family; Visit Provider Surgery ==

== ENCOUNTER 2024-10-22 22:09 | Emergency (ER) | payer SELFPAY ==
--- NOTE | ~2024-10-22 | XR_ITS ---
CLINICAL HISTORY: pain 4 views cervical spine Comparison: None Findings: Normal vertebral body alignment. No acute fractures or dislocation. No significant degenerative change. Prevertebral soft tissues within normal limits. IMPRESSION: No acute findings. This document has been electronically signed by: nIdu White MD on 10/22/2024 22:47:07
--- NOTE | ~2024-10-22 | XR_ITS ---
CLINICAL HISTORY: pain 4 view left knee Comparison: None Findings: Bones intact. No dislocations. No significant arthritic change or erosions. No joint effusion. 4 mm posterior soft tissues radiopaque foreign body just below the level of the joint line. IMPRESSION: 1. No acute osseous findings. 2. 4 mm posterior soft tissue foreign body. This document has been electronically signed by: Indu White MD on 10/22/2024 22:49:53
[2024-10-22 22:14] VITALS: BP 139/52; PULSE 64; RESP 20; TEMP 36.8; O2SAT 98; BMI 27.9
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
[2024-10-23] MEDS: Ibuprofen 400 MG TABLET PO (03:59)
[2024-10-23 04:01] VITALS: BP 139/52; PULSE 64; RESP 20; TEMP 36.8; O2SAT 98
== END 2024-10-23 04:02 | disposition home or self-care (01) ==
PROVIDERS: Emergency Provider Emergency Medicine Emergency Medical Services; PCP Nurse Practitioner Family
DX: S13.4XXA Sprain of ligaments of cervical spine, initial encounter (principal); S80.02XA Contusion of left knee, initial encounter; M54.2 Cervicalgia; M25.562 Pain in left knee; V63.5XXA Driver of heavy transport vehicle injured in collision with car, pick-up truck or van in traffic accident, initial encounter; Y93.89 Activity, other specified; Y92.488 Other paved roadways as the place of occurrence of the external cause; Y99.0 Civilian activity done for income or pay
CPT/HCPCS: 72040; 73564; 99283

== ENCOUNTER → 2024-10-22 22:25 | Outpatient (BNV) | payer BC, SELFPAY | PROVIDERS: PCP Nurse Practitioner Family; Visit Provider Specialist | DX: M25.562 Pain in left knee (principal); M79.5 Residual foreign body in soft tissue; M54.2 Cervicalgia | CPT/HCPCS: 72040; 73564 ==